=== PATIENT | female | born 1980 | race African-American/Black ===

== ENCOUNTER 2019-03-22 14:12 | Outpatient (CLI) | payer BC ==
--- NOTE | 2019-03-22 16:15 | MMO ---
Bilateral MAMMO Bilat Diag DDI+SILVIA. CLINICAL HISTORY: Patient is 38 years old and is seen for diagnostic exam,skin thickening or retraction on clinical examination and lump or thickening in the right breast. The patient has no family history of breast cancer. The patient has no personal history of cancer. VIEWS: The views performed were: bilateral craniocaudal with tomosynthesis; bilateral mediolateral oblique with tomosynthesis; and bilateral mediolateral with tomosynthesis. FILMS COMPARED: The present examination has been compared to a prior imaging study performed at [facility] on 03/22/2019. This study has been interpreted with the assistance of computer-aided detection. MAMMOGRAM FINDINGS: There are scattered fibroglandular densities. Extensive severe right sided skin thickening noted. There is a mass at the 9 o'clock position of the right breast measuring 2.9cm. This correlates with a suspicious solid mass on US. Ultrasound demonstrates additional solid masses in the axillary tail region measuring up to 4cm. Axillary adenopathy noted on the right on ultrasound as well. No definitive lesion noted on the left. In the left breast, there are no suspicious masses, calcifications or areas of architectural distortion. IMPRESSION: FINDING IN THE RIGHT BREAST IS HIGHLY SUGGESTIVE OF MALIGNANCY. BIOPSY IS RECOMMENDED. These findings are concerning for right sided inflammatory breast carcinoma with metastatic axillary adenopathy. Breast MRI advised for full assessment. THE RESULTS OF THIS EXAM WERE SENT TO THE PATIENT. ACR BI-RADS Category 5 - Highly suggestive of malignancy - appropriate action should be taken MAMMOGRAPHY NOTE: 1. A negative mammogram report should not delay a biopsy if a dominant of clinically suspicious mass is present. 2. Approximately 10% to 15% of breast cancers are not detected by mammography. 3. Adenosis and dense breasts may obscure an underlying neoplasm. Reported by: CARLA BOWLING MD Electonically Signed: [id number]
--- NOTE | 2019-03-22 16:23 | ULT ---
RIGHT BREAST ULTRASOUND: 03/22/19 HISTORY: 28-year-old female with extensive right sided breast skin thickening, edema, and warmth. Mammography demonstrates a suggestion of breast masses, particularly at the 9 o'clock position of the right breas t. FINDINGS: A focused ultrasound of the right breast is performed. There is extensive severe marked skin thickeni ng and edema. At the 9 o'clock position of the right breast, there is a hypoechoic irregular shadowin g mass measuring 2.6 x 2.2 x 3.7 cm. At 11 o'clock position, there is a hypoechoic irregularly shape d mass measuring up to 1.6 cm. There is lymphadenopathy in the right axillary region measuring 2.2 cm x 1.6 cm. There are soft tissue masses in the left axillary region which appear to represent multipl e solid hypoechoic suspicious masses within the axillary tail. This includes a mass at the 10 o'clock position 18 cm from the nipple measuring 1.2 x 0.9 cm. There is a hypoechoic solid mass also noted i n the region of the right axillary tail measuring 3.1 x 4.0 x 3.0 cm. IMPRESSION: BIRADS 5: Highly Suggestive of Malignancy - Appropriate Action Should Be Taken Requires biopsy or surgical treatment. Multiple masses are seen within the right breast and there is extensive skin thickening with right ax illary lymphadenopathy. Findings are highly concerning for inflammatory breast cancer. Ultrasound keegan ded core biopsy is advised. Breast MRI advised as well. Code T POS: OFF
== END 2019-03-22 14:13 | disposition home or self-care (01) ==
LOC: BICMAMMO 14:12
PROVIDERS: ATTEND Physician Assistant Medical
DX: N63.13 Unspecified lump in the right breast, lower outer quadrant (principal); R59.0 Localized enlarged lymph nodes; N64.89 Other specified disorders of breast
CPT/HCPCS: 77066; G0279

== ENCOUNTER 2019-03-23 10:36 | Outpatient (CLI) | payer BC ==
--- NOTE | 2019-03-23 11:31 | MMO ---
Right Breast MAMMO Unilat Diag DDI RT. CLINICAL HISTORY: Patient is 38 years old and is seen for diagnostic exam. The patient has no family history of breast cancer. The patient has no personal history of cancer. The patient has a history of right Skin punch biopsy in February,, right Ultrasound Guided Core Biopsy in February, - BREAST and right Ultrasound Guided Core Biopsy in February, - LYMPH NODES. VIEWS: The views performed were: right craniocaudal; right mediolateral oblique; and right mediolateral. FILMS COMPARED: The present examination has been compared to a prior imaging study performed at [facility] on 03/22/2019. This study has been interpreted with the assistance of computer-aided detection. MAMMOGRAM FINDINGS: There are scattered fibroglandular densities. Finding 1: There is a mass measuring 29 millimeters with associated skin thickening seen in the right breast at 9 o'clock. Finding 2: There is a mass with associated biopsy clip seen in the axillary tail of the right breast. IMPRESSION: FINDING 1: MASS IN THE RIGHT BREAST AT 9 O'CLOCK IS HIGHLY SUGGESTIVE OF MALIGNANCY. FINDING 2: MASS IN THE AXILLARY TAIL OF THE RIGHT BREAST IS HIGHLY SUGGESTIVE OF MALIGNANCY. THE RESULTS OF THIS EXAM WERE SENT TO THE PATIENT. ACR BI-RADS Category 5 - Highly suggestive of malignancy - appropriate action should be taken MAMMOGRAPHY NOTE: 1. A negative mammogram report should not delay a biopsy if a dominant of clinically suspicious mass is present. 2. Approximately 10% to 15% of breast cancers are not detected by mammography. 3. Adenosis and dense breasts may obscure an underlying neoplasm. Reported by: SHAHAB SANCHES MD Electonically Signed: [id number]
== END 2019-03-23 10:37 | disposition home or self-care (01) ==
LOC: BICMAMMO 10:36
PROVIDERS: ATTEND Specialist
DX: N63.13 Unspecified lump in the right breast, lower outer quadrant (principal); N63.31 Unspecified lump in axillary tail of the right breast

== ENCOUNTER 2019-03-26 17:19 | Outpatient (CLI) | payer BC ==
[2019-03-26 17:59] LABS: #Lymphocytes 1.5 thou/uL (1.20-3.40); #Monocytes 0.5 thou/uL (0.11-0.59); #Neutrophils 3.2 thou/uL (1.40-6.50); %Basophils 0.2 % (0.0-1.0); %Eosinophils 0.8 % (0.0-10.0); %Lymphocytes 28.7 % (21.0-51.0); %Monocytes 8.7 % (0.0-10.0); %Neutrophils 61.5 % (42.0-75.0); Mean Corpuscular HGB CONC 31.2 g/dL (32.0-36.0); Mean Corpuscular Hemoglobin 25.1 pg (27.0-31.0); Mean Corpuscular Volume 80.3 fL (78.0-98.0); Mean Platelet Volume 6.9 fL (7.4-10.4); Platelet Count 420 thou/uL (130-400); Red Blood Cell (RBC) Count 4.38 mill/uL (4.20-5.40); White Blood Cell (WBC) Count 5.3 thou/uL (4.8-10.8)
[2019-03-26 18:05] LABS: BHCG - Serum Negative (NEGATIVE); Pregs Control Background? CLEAR/WHITE (CLR/WHITE); Pregs Control Bar Appear? YES (CONTROL BAR)
[2019-03-26 18:20] LABS: Anion Gap 14 mmol/L (10-20); BUN (Urea Nitrogen) 10 mg/dL (7.0-18.7); Calc. Creatinine Clearance 0 mL/min (70-130); Calcium 9.6 mg/dL (7.8-10.44); Carbon Dioxide 22 mmol/L (22-29); Chloride 107 mmol/L (98-107); Estimated GFR-MDRD Greater than 90; Glucose 91 mg/dL (70-105); Potassium 3.6 mmol/L (3.5-5.1); Sodium 139 mmol/L (136-145)
== END 2019-03-26 17:20 | disposition home or self-care (01) ==
LOC: LABBT 17:19
PROVIDERS: ATTEND Specialist
DX: Z01.812 Encounter for preprocedural laboratory examination (principal); C50.919 Malignant neoplasm of unspecified site of unspecified female breast
CPT/HCPCS: 80048; 84703; 85025

== ENCOUNTER 2019-03-27 08:18 | Day surgery (SDC) | payer BC ==
[2019-03-26 16:18] VITALS: BMI 42.5
[2019-03-27] MEDS ORDERED: Ketorolac Tromethamine 30 MG/ML VIAL ONE (08:41)
[2019-03-27] MEDS ORDERED: PROPOFOL 60 ML ONE (12:51)
[2019-03-27] MEDS ORDERED: Lidocaine 1% (PF) 30 ML VIAL ONE (13:11)
[2019-03-27] MEDS ORDERED: Bupivacaine/Epinephrine 0.25% 30 ML VIAL ONE (13:11)
--- NOTE | 2019-03-27 15:27 | RAD ---
Exam: Chest one view HISTORY:Status post Mediport catheter placed Comparison: None FINDINGS: Cardiac silhouette:Enlarged cardiac silhouette. Aorta: Unremarkable Pulmonary vessels: Mildly prominent Costophrenic angles: Clear LUNGS: No masses or consolidation Lines and tubes: Left-sided Mediport catheter with the distal tip in the expected region of the super ior vena cava. Pneumothorax: None Osseous abnormalities: None IMPRESSION: Left-sided Mediport catheter. No pneumothorax.
[2019-03-27] MEDS ORDERED: Labetalol HCl 100 MG/20 ML VIAL ONE (15:33)
--- NOTE | 2019-03-27 16:33 | EKG ---
Test Reason : PREOP Blood Pressure : / mmHG Vent. Rate : 078 BPM Atrial Rate : 078 BPM P-R Int : 194 ms QRS Dur : 102 ms QT Int : 398 ms P-R-T Axes : 045 042 024 degrees QTc Int : 453 ms Normal sinus rhythm Normal ECG No previous ECGs available Confirmed by JOHNATHAN JAMESON ([id number]) on 03/27/2019 4:33:34 PM Referred By: DAIANA Confirmed By:JOHNATHAN JAMESON
[2019-03-27] MEDS ORDERED: hydrALAZINE 20 MG/ML VIAL ONE (16:39)
[2019-03-27] MEDS ORDERED: PROPOFOL 200 MG/20 ML VIAL ONE (19:56)
--- NOTE | 2019-03-28 14:32 | OP ---
DATE OF PROCEDURE: 03/27/2019 PREOPERATIVE DIAGNOSIS: Inflammatory right breast cancer. POSTOPERATIVE DIAGNOSIS: Inflammatory right breast cancer. OPERATION PERFORMED: Placement of a standard-size ___left subclavian power compatible MediPort. ANESTHESIA: Total intravenous anesthesia with local using 0.25% Marcaine with epinephrine. INDICATIONS: The patient is a 38-year-old black female. She presented recently with advanced obvious inflammatory cancer of the right breast. She is taken to the operating room at this time for MediPort placement. She will clearly require chemotherapy. DESCRIPTION OF PROCEDURE: Informed consent was obtained. The patient was taken to the operating room where total intravenous anesthesia was obtained with the patient in supine position. ___Left periclavicular area was prepped with ChloraPrep and draped in sterile fashion. Local anesthetic was infiltrated and a large-gauge needle was passed under the clavicle in the subclavian vein. Guidewire was passed through the needle and fluoroscopically confirmed to enter the superior vena cava. Additional local anesthetic was infiltrated and transverse incision was created based on needle insertion site. A subcutaneous pocket was dissected inferiorly. Introducer dilator was passed over the guidewire under fluoroscopic guidance. The guidewire and dilator were removed, and the catheter was passed through the introducer. The tip of the catheter was positioned at the atriocaval junction and the catheter was trimmed to the appropriate length and secured to the locking hub of the MediPort. The port was then placed in the subcutaneous pocket where it was secured to the pectoral fascia with 2 interrupted sutures of 3-0 Prolene. The incision was then closed in layers with 3-0 and 4-0 Monocryl. Additional local anesthetic was infiltrated. The port was cannulated with a Bonds needle and it aspirated blood freely and was flushed with heparinized saline. Dermabond was placed externally on the skin incision. There were no complications. Blood loss was negligible. The patient tolerated the procedure well and was taken to recovery room in stable condition. FINDINGS: A standard-size port was selected secondary to her body habitus. It was placed uneventfully into the __left_ subclavian vein using fluoroscopy. There were no complications and no blood loss. The patient tolerated the procedure well. Job ID: [id number] [facility]
== END 2019-03-27 18:16 | disposition home or self-care (01) ==
LOC: SDC 08:18
PROVIDERS: ATTEND Specialist
PROC: 02HV33Z Insertion of Infusion Device into Superior Vena Cava, Percutaneous Approach (ICD-10-PCS; principal; 2019-03-27)
DX: C50.911 Malignant neoplasm of unspecified site of right female breast (principal); I10 Essential (primary) hypertension; Z79.899 Other long term (current) drug therapy
CPT/HCPCS: 71045; 93005; 93010; J0131; J0360; J0690; J1642; J1885; J2001; J2704

== ENCOUNTER 2019-04-05 13:23 | Outpatient (CLI) | payer BC ==
--- NOTE | 2019-04-05 16:35 | PET ---
Nuclear medicine FDG PET/CT: (Positron emission tomography and computed tomography) DATE: 04/05/2019 HISTORY: 38-year-old female with malignant neoplasm of central portion of right female breast. Inflammatory breast cancer. COMPARISON: none TECHNIQUE: IV injection of F-18 fluorodeoxyglucose (FDG) dose: 11.2 mCi. PET scan and attenuation correction CT performed from skull base to proximal thighs. FINDINGS: SUV (standard uptake values) numbers given are maximum SUVs. QCLR used. Large number of very enlarged right axillary lymph nodes. The largest anterior conglomeration measuri ng approximately 4.5 x 3.5 x 4 cm with SUV of 12.8. More posteriorly located smaller conglomeration SUV 10.1. Right lateral breast lesion SUV 7.5. This could be the main tumor itself, post surgical or postbiopsy change, or both. Diffuse severe right breast skin thickening with fat stranding representing inflammatory breast cance r with SUV of 4.4. No mediastinal, hilar, pulmonary, intra-abdominal, intrapelvic, or cervical, metastatic disease. No convincing evidence of skeletal metastatic disease, but nuclear medicine bone scan would be better than patent. IMPRESSION: 1) right breast cancer. 2) inflammatory right breast cancer. 3) severe right axillary malignant metastatic lymphadenopathy. 4) no distant metastasis.
== END 2019-04-05 13:24 | disposition home or self-care (01) ==
LOC: PET 13:23
PROVIDERS: ATTEND Internal Medicine Hematology & Oncology
DX: C50.111 Malignant neoplasm of central portion of right female breast (principal); C77.3 Secondary and unspecified malignant neoplasm of axilla and upper limb lymph nodes
CPT/HCPCS: 78815; A9552

== ENCOUNTER 2019-04-06 12:17 | Outpatient (CLI) | payer BC | END 2019-04-06 12:18 | disposition home or self-care (01) | LOC: ULT 12:17 | PROVIDERS: ATTEND Internal Medicine Hematology & Oncology | DX: Z51.11 Encounter for antineoplastic chemotherapy (principal); C50.911 Malignant neoplasm of unspecified site of right female breast; I08.1 Rheumatic disorders of both mitral and tricuspid valves; Z79.899 Other long term (current) drug therapy | CPT/HCPCS: 93306 ==

== ENCOUNTER 2019-05-04 16:04 | Inpatient (IN) | payer BC ==
[2019-05-04 16:39] LABS: #Lymphocytes 1.4 thou/uL (1.20-3.40); %Basophils 0.3 % (0.0-1.0); %Eosinophils 0.3 % (0.0-10.0); %Lymphocytes 14.9 % (21.0-51.0); %Monocytes 10.2 % (0.0-10.0); %Neutrophils 74.3 % (42.0-75.0); Mean Corpuscular HGB CONC 32.3 g/dL (32.0-36.0); Mean Corpuscular Hemoglobin 26.6 pg (27.0-31.0); Mean Corpuscular Volume 82.4 fL (78.0-98.0); Mean Platelet Volume 8.2 fL (7.4-10.4); Platelet Count 230 thou/uL (130-400); RBC Distribution Width 17.5 % (11.5-14.5); Red Blood Cell (RBC) Count 4.14 mill/uL (4.20-5.40); White Blood Cell (WBC) Count 9.4 thou/uL (4.8-10.8)
--- NOTE | 2019-05-04 16:59 | RAD ---
Chest one view HISTORY: Fever. Abscess. COMPARISON: 03/27/2019. FINDINGS: Cardiac silhouette is magnified and upper limits of normal in size. Pulmonary vasculature i s unremarkable. Mediastinum is midline with a left subclavian Port-A-Cath. No lobar consolidation or evidence of pneumothorax. IMPRESSION: No active cardiopulmonary abnormalities are demonstrated.
[2019-05-04] MEDS ORDERED: Lidocaine 1% w/Epinephrine 1:100K 20 ML VIAL ONE (17:00)
[2019-05-04 17:06] LABS: ALT (SGPT) 28 U/L (8-55); AST (SGOT) 22 U/L (5-34); Albumin 3.8 g/dL (3.5-5.0); Alkaline Phosphatase 64 U/L (40-110); Anion Gap 14 mmol/L (10-20); BUN (Urea Nitrogen) 8 mg/dL (7.0-18.7); Bilirubin, Total 1.1 mg/dL (0.2-1.2); Calc. Creatinine Clearance 0 mL/min (70-130); Calcium 9.2 mg/dL (7.8-10.44); Carbon Dioxide 25 mmol/L (22-29); Chloride 102 mmol/L (98-107); Estimated GFR-MDRD Greater than 90; Globulin 3.7 g/dL (2.4-3.5); Glucose 102 mg/dL (70-105); Potassium 3.5 mmol/L (3.5-5.1); Protein, Total 7.5 g/dL (6.0-8.3); Sodium 137 mmol/L (136-145)
[2019-05-04] MEDS ORDERED: Piperacillin/Tazobactam 4.5 GM VIAL ONE (17:46)
[2019-05-04 18:59] LABS: Bacteria/HPF 3+ HPF (None Seen); Bilirubin Negative (Negative); Blood, Urine Negative (Negative); Clarity Turbid (Clear); Glucose, Urine (Dipstick) Normal (Negative); Leukocyte 500 Leu/uL (Negative); Nitrite Negative (Negative); Protein, Urine (Dipstick) 10 mg/dL (Neg-Trace); Squamous Epithelial None Seen HPF (0-3); Transitional Epithelial 0-3 HPF (None Seen); Urobilinogen Normal mg/dL (Less than 2); WBC/HPF Greater than 50 HPF (0-3)
[2019-05-04 19:09] LABS: RBC/HPF 0-3 HPF (0-3); Renal Epithelial 0-3 HPF (None Seen)
--- NOTE | 2019-05-04 19:40 | PDOC.HHP ---
Hospitalist HPI - History of Present Illness Gluteal edema, pain History of Present Illness: Patient is a 38 year old female with PMH inflammatory breast cancer (first treatment 04/16/19), anemia who presents for 1 day of swelling and pain in gluteal region, pain was severe on arrival -03/08, she was febrile in triage to 101F. In ED, UA positive for infection markers, CXR without acute findings, lactic acid 1.4, patient given one dose zosyn, cyst/abscess drained at bedside, patient to be admitted for further workup. Hospitalist ROS - Review of Systems Constitutional: denies: fever, chills Eyes: denies: pain, vision change ENT: denies: mouth pain, mouth swelling, throat pain Respiratory: denies: cough, dry Cardiovascular: denies: chest pain, palpitations, light headedness Gastrointestinal: denies: nausea, vomiting Musculoskeletal: denies: neck pain, shoulder pain Skin: reports: rash (gluteal swelling and pain), lesions Neurological: denies: weakness, numbness All other systems reviewed; all pertinent +/- noted in HPI/Subj Hospitalist History - Past Medical History Other Medical History: breast cancer anemia - Past Surgical History Other Surgical History: chemo port placement - Family History Other Family History: reviewed and noncontributory - Social History Smoking Status: Never smoker Alcohol: reports: None Drugs: reports: none - Exam General Appearance: NAD, awake alert Eye: PERRL, anicteric sclera ENT: normocephalic atraumatic, no oropharyngeal lesions, moist mucosa Neck: supple, symmetric, no JVD Heart: RRR, no murmur, no gallops, no rubs Respiratory: CTAB, no wheezes, no rales, no ronchi Gastrointestinal: soft, non-tender, non-distended, normal bowel sounds, no palpable masses, no hepatomegaly, no splenomegaly, no bruit Extremities: no cyanosis, no clubbing, no edema Skin - other findings: gluteal edema and postoperative dressing packed Neurological: cranial nerve grossly intact, normal sensation to touch, no weakness, no focal deficits Musculoskeletal: normal tone, normal strength Psychiatric: normal affect, normal behavior, A&O x 3, oriented to person Hospitalist Results - Labs Result Diagrams: 05/05/19 06:44 05/05/19 06:44 Lab results: WBC 9.4 thou/uL (4.8-10.8) 05/04/19 16:27 Hgb 11.0 g/dL (12.0-16.0) L 05/04/19 16:27 Hct 34.1 % (36.0-47.0) L 05/04/19 16:27 MCV 82.4 fL (78.0-98.0) 05/04/19 16:27 Plt Count 230 thou/uL (130-400) 05/04/19 16:27 Neutrophils % 74.3 % (42.0-75.0) 05/04/19 16:27 Sodium 137 mmol/L (136-145) 05/04/19 16:27 Potassium 3.5 mmol/L (3.5-5.1) 05/04/19 16:27 Chloride 102 mmol/L (98-107) 05/04/19 16:27 Carbon Dioxide 25 mmol/L (22-29) 05/04/19 16:27 BUN 8 mg/dL (7.0-18.7) 05/04/19 16:27 Creatinine 0.82 mg/dL (0.6-1.1) 05/04/19 16:27 Glucose 102 mg/dL (70-105) 05/04/19 16:27 Lactic Acid 1.4 mmol/L (0.5-2.2) 05/04/19 16:27 Calcium 9.2 mg/dL (7.8-10.44) 05/04/19 16:27 Total Bilirubin 1.1 mg/dL (0.2-1.2) 05/04/19 16:27 AST 22 U/L (5-34) 05/04/19 16:27 ALT 28 U/L (8-55) 05/04/19 16:27 Alkaline Phosphatase 64 U/L (40-110) 05/04/19 16:27 Serum Total Protein 7.5 g/dL (6.0-8.3) 05/04/19 16:27 Albumin 3.8 g/dL (3.5-5.0) 05/04/19 16:27 Urine Ketones Negative mg/dL (Negative) 05/04/19 17:48 Urine Blood Negative (Negative) 05/04/19 17:48 Urine Nitrite Negative (Negative) 05/04/19 17:48 Ur Leukocyte Esterase 500 Az/uL (Negative) A 05/04/19 17:48 Urine RBC 0-3 HPF (0-3) 05/04/19 17:48 Urine WBC Greater than 50 HPF (0-3) A 05/04/19 17:48 Ur Squamous Epith Cells None Seen HPF (0-3) 05/04/19 17:48 Urine Bacteria 3+ HPF (None Seen) A 05/04/19 17:48 Hospitalist H&P A/P - Plan Plan: Patient is a 38 year old female with PMH inflammatory breast cancer (first treatment 04/16/19), anemia who presents for 1 day of swelling and pain in gluteal region, found to have abscess in ED # gluteal abscess - admit to floor - general surgery, wound care nursing consults - case management consult to arrange outpatinet wound care or home health - continue abx until cultures and surgery consult, can likely go to augmentin or similar soon based on wound and urine cultures # UTI - continue broad spectrum abx, follow culture # breast cancer - recommend continued outaptinet treatment
[2019-05-04] MEDS ORDERED: Sodium Chloride 0.9% 1,000 ML IV SCH (20:24)
[2019-05-04] MEDS ORDERED: Acetaminophen 325 MG TAB PO PRN (20:24)
[2019-05-04] MEDS ORDERED: Ondansetron PF 4 MG/2 ML Vial IVP PRN ×2 (20:24→20:51)
[2019-05-04] MEDS ORDERED: Ondansetron ODT 4 MG TAB SL PRN (20:24)
[2019-05-04] MEDS ORDERED: VANCOMYCIN HCL IVPB SCH (20:45)
[2019-05-04] MEDS ORDERED: SODIUM CHLORIDE 0.9% IVPB SCH (20:45)
[2019-05-04] MEDS ORDERED: HYDROcodone/Acetaminophen 5/325 mg Tablet PO PRN (20:50)
[2019-05-04] MEDS ORDERED: Bisacodyl 5 MG TAB PO PRN (20:50)
[2019-05-04] MEDS ORDERED: Bisacodyl 10 MG SUPP PR PRN (20:50)
[2019-05-04] MEDS ORDERED: cloNIDine 0.1 MG TAB PO PRN (20:51)
[2019-05-04] MEDS ORDERED: hydrALAZINE 20 MG/ML VIAL SLOW IVP PRN (20:51)
[2019-05-04 21:35] VITALS: BMI 38.9
[2019-05-04] MEDS: Sodium Chloride 0.9% 1,000 ML IV SCH (22:21)
[2019-05-04] MEDS: Senokot S 8.6-50 MG TAB PO SCH (22:22)
[2019-05-05] MEDS: Piperacillin/Tazobactam 3.375 GM in Sodium Chloride 0.9% 100 ML IVPB SCH ×5 (00:47→23:46)
[2019-05-05] MEDS: Sodium Chloride 0.9% 1,000 ML IV SCH ×2 (06:41→23:44)
[2019-05-05 07:03] LABS: #Lymphocytes 1.6 thou/uL (1.20-3.40); #Neutrophils 5.1 thou/uL (1.40-6.50); %Basophils 0.6 % (0.0-1.0); %Eosinophils 0.1 % (0.0-10.0); %Lymphocytes 20.8 % (21.0-51.0); %Monocytes 13.3 % (0.0-10.0); %Neutrophils 65.2 % (42.0-75.0); Hemoglobin 9.1 g/dL (12.0-16.0); Mean Corpuscular HGB CONC 32.5 g/dL (32.0-36.0); Mean Corpuscular Hemoglobin 26.6 pg (27.0-31.0); Mean Corpuscular Volume 81.9 fL (78.0-98.0); Mean Platelet Volume 7.9 fL (7.4-10.4); Platelet Count 209 thou/uL (130-400); RBC Distribution Width 17.6 % (11.5-14.5); Red Blood Cell (RBC) Count 3.41 mill/uL (4.20-5.40); White Blood Cell (WBC) Count 7.8 thou/uL (4.8-10.8)
[2019-05-05 07:15] LABS: Anion Gap 10 mmol/L (10-20); BUN (Urea Nitrogen) 7 mg/dL (7.0-18.7); Calc. Creatinine Clearance 198 mL/min (70-130); Carbon Dioxide 25 mmol/L (22-29); Chloride 107 mmol/L (98-107); Estimated GFR-MDRD Greater than 90; Glucose 96 mg/dL (70-105); Sodium 139 mmol/L (136-145)
[2019-05-05 07:19] LABS: Potassium 2.6 mmol/L (3.5-5.1)
[2019-05-05] MEDS ORDERED: Potassium Chloride 20 MEQ TAB PO SCH (08:00)
[2019-05-05] MEDS: Senokot S 8.6-50 MG TAB PO SCH ×2 (08:01→19:45)
[2019-05-05] MEDS: Enoxaparin Sodium 40 MG/0.4 ML SYRINGE SC SCH (08:01)
[2019-05-05] MEDS ORDERED: Prevnar 13-Val Conj/PF 0.5 ML SYRINGE IM ONE (09:00)
[2019-05-05] MEDS: Morphine 2 MG/ML SYRINGE SLOW IVP PRN (10:28)
--- NOTE | 2019-05-05 12:48 | PDOC.GSPN ---
Surgery Progress Note: Subj - Subjective Narrative: Patient seen by Dr. Cheek for inflammatory breast cancer. This locally advanced but without evidence of metastatic disease on PET scan. She has a Mediport in place and has been on chemotherapy since mid March. She came to the hospital with a one-day history of severe pain in the gluteal area and was found to have an abscess which was drained in the emergency room and packed. Since then her pain is much better. I saw her today with the wound care team and examined the wound. This seems most likely to be a pilonidal abscess due to its location in the upper gluteal cleft area. It is about 4 cm deep and about 3 cm in size from superior to inferior but does not have any tunneling and no significant induration or erythema. It appears to be adequately drained and her mother is comfortable with packing the wound daily, as she has experience with this type of wound care in the past. Once the mother is comfortable with dressing changes, the patient can be discharged home and follow up with Dr. Cheek for the abscess. I'm going to sign off for now. Please call if there are any questions or need for further assistance. Surgery Progress Note: Obj - Vital signs Vital signs: Vital Signs - Most Recent Temp Pulse Resp BP Pulse Ox 98.3 F 80 17 134/87 98 05/05/19 11:44 05/05/19 11:44 05/05/19 11:44 05/05/19 11:44 05/05/19 11:44 Surgery Progress Note: Results - Labs Result Diagrams: 05/05/19 06:44 05/05/19 06:44 Lab results: Laboratory Results - last 24 hr 05/05/19 05/05/19 06:44 06:44 WBC 7.8 RBC 3.41 L Hgb 9.1 L Hct 27.9 L MCV 81.9 MCH 26.6 L MCHC 32.5 RDW 17.6 H Plt Count 209 MPV 7.9 Neutrophils % 65.2 Lymphocytes % 20.8 L Monocytes % 13.3 H Eosinophils % 0.1 Basophils % 0.6 Neutrophils # 5.1 Lymphocytes # 1.6 Monocytes # 1.0 H Eosinophils # 0.0 Basophils # 0.0 Sodium 139 Potassium 2.6 L* Chloride 107 Carbon Dioxide 25 Anion Gap 10 BUN 7 Creatinine 0.79 Estimated GFR (MDRD) Greater than 90 Glucose 96 Calcium 8.0
[2019-05-05] MEDS: Potassium Chloride 20 MEQ TAB PO SCH ×2 (13:20→19:45)
--- NOTE | 2019-05-05 13:46 | PDOC.HOSPP ---
- Subjective Encounter Date: 05/05/19 Encounter Time: 08:00 Subjective: pain is better, no palp or chest pain mother at bedside - Objective Vital Signs & Weight: Vital Signs (12 hours) Temp Pulse Resp BP Pulse Ox 05/05/19 11:44 98.3 F 80 17 134/87 98 05/05/19 08:00 98.2 F 87 17 104/69 98 05/05/19 04:02 98.8 F 77 18 108/64 98 Weight Weight 287 lb Result Diagrams: 05/05/19 06:44 05/05/19 06:44 Hospitalist ROS - Medication Medications: Active Medications Generic Name Dose Route Start Last Admin Trade Name Freq PRN Reason Stop Dose Admin Enoxaparin Sodium 40 mg 05/05/19 09:00 05/05/19 08:01 Lovenox SC 40 mg 0900 SOLANGE Administration Piperacillin Sod/Tazobactam 100 mls @ 200 mls/hr 05/04/19 23:59 05/05/19 11: 53 Sod 3.375 gm/ Sodium Chloride IVPB 100 mls Q6HR SOLANGE Administration Sodium Chloride 1,000 mls @ 100 mls/hr 05/04/19 21:00 05/05/19 06:41 Normal Saline 0.9% IV Not Given .Q10H SOLANGE Vancomycin HCl 2 gm/ Sodium 500 mls @ 250 mls/hr 05/04/19 22:00 05/05/19 13: 19 Chloride IVPB 500 mls Q8HR SOLANGE Administration Morphine Sulfate 2 mg 05/04/19 20:51 05/05/19 10:28 Morphine SLOW IVP 2 mg Q4H PRN Administration Breakthrough Pain Potassium Chloride 40 meq 05/05/19 15:00 05/05/19 13:20 K-Dur PO 05/06/19 09:01 40 meq Q6H SOLANGE Administration Senna/Docusate Sodium 1 tab 05/04/19 21:00 05/05/19 08:01 Senokot S PO 1 tab BID SOLANGE Administration - Exam General Appearance: NAD, awake alert Eye: PERRL, anicteric sclera ENT: no oropharyngeal lesions, moist mucosa Neck: supple, no JVD Heart: RRR, no murmur Respiratory: no wheezes, no rales Gastrointestinal: soft, non-tender, non-distended, normal bowel sounds Extremities: no cyanosis, no edema Neurological: cranial nerve grossly intact, no focal deficits Psychiatric: normal affect, A&O x 3 Hosp A/P (1) Pilonidal abscess Code(s): L05.01 - PILONIDAL CYST WITH ABSCESS Status: Acute (2) Breast cancer Status: Chronic (3) HTN (hypertension) Code(s): I10 - ESSENTIAL (PRIMARY) HYPERTENSION Status: Chronic Qualifiers: Hypertension type: essential hypertension Qualified Code(s): I10 - Essential (primary) hypertension (4) Chronic anemia Code(s): D64.9 - ANEMIA, UNSPECIFIED Status: Chronic (5) Hypokalemia Code(s): E87.6 - HYPOKALEMIA Status: Acute (6) Obesity (BMI 30-39.9) Code(s): E66.9 - OBESITY, UNSPECIFIED Status: Chronic - Plan had I&D drainage in ER, has evaluated patient on floor with no further surgical intervention needs wound care training with mother prior to discharge correct potassium continue vanc and zosyn, await culture results oral iron hemostable to ambulate as tolerated
[2019-05-05 21:30] LABS: Vancomycin, Trough 31.5 ug/mL
[2019-05-06] MEDS: Sodium Chloride 0.9% 1,000 ML IV SCH (03:32)
[2019-05-06] MEDS: Potassium Chloride 20 MEQ TAB PO SCH ×2 (03:32→08:10)
[2019-05-06 05:21] LABS: Vancomycin, Random 18.2 ug/mL (See Comment)
[2019-05-06 05:38] LABS: Anion Gap 9 mmol/L (10-20); BUN (Urea Nitrogen) 8 mg/dL (7.0-18.7); Calc. Creatinine Clearance 98 mL/min (70-130); Calcium 8.3 mg/dL (7.8-10.44); Carbon Dioxide 22 mmol/L (22-29); Chloride 113 mmol/L (98-107); Estimated GFR-MDRD 44; Glucose 102 mg/dL (70-105); Potassium 3.4 mmol/L (3.5-5.1); Sodium 141 mmol/L (136-145)
[2019-05-06] MEDS: Piperacillin/Tazobactam 3.375 GM in Sodium Chloride 0.9% 100 ML IVPB SCH (05:57)
[2019-05-06 06:04] LABS: Anisocytosis SLIGHT = 6-15 cells (100X) (0-5/hpf); Band 1 % (5-11); Hemoglobin 9.3 g/dL (12.0-16.0); Lymphocytes 16 % (21-51); MDiff Complete? YES; Mean Corpuscular HGB CONC 32.8 g/dL (32.0-36.0); Mean Corpuscular Hemoglobin 27.5 pg (27.0-31.0); Mean Corpuscular Volume 83.8 fL (78.0-98.0); Mean Platelet Volume 7.8 fL (7.4-10.4); Monocytes 14 % (0-10); Neutrophil 69 % (42-75); Ovalocytes SLIGHT = 2-5 cells (100X) (0-1/hpf); Platelet Count 253 thou/uL (130-400); Platelet Morphology Comment Appears Adequate; RBC Distribution Width 17.6 % (11.5-14.5); Red Blood Cell (RBC) Count 3.39 mill/uL (4.20-5.40); White Blood Cell (WBC) Count 6.7 thou/uL (4.8-10.8)
[2019-05-06] MEDS ORDERED: Vancomycin 1.5 GRAM/300 ML BAG 1.5 GM in Premix Bag 1 BAG IVPB SCH (08:00)
[2019-05-06] MEDS: Enoxaparin Sodium 40 MG/0.4 ML SYRINGE SC SCH (08:10)
[2019-05-06] MEDS: Senokot S 8.6-50 MG TAB PO SCH ×2 (08:10→21:08)
[2019-05-06] MEDS: Morphine 2 MG/ML SYRINGE SLOW IVP PRN (09:16)
--- NOTE | 2019-05-06 11:06 | PDOC.HOSPP ---
- Subjective Encounter Date: 05/06/19 Encounter Time: 08:45 Subjective: was nauseous a bit this am, has cleared up now no abd pain or back pain is amb in room mother at bedside - Objective Vital Signs & Weight: Vital Signs (12 hours) Temp Pulse Resp BP BP Pulse Ox 05/06/19 08:00 99.3 F 86 16 119/83 97 05/06/19 04:13 100.0 F H 91 18 130/74 97 05/05/19 23:42 98.9 F 86 18 133/84 99 Weight Admit Weight 287 lb Weight 287 lb Result Diagrams: 05/06/19 04:48 05/06/19 04:48 Hospitalist ROS - Medication Medications: Active Medications Generic Name Dose Route Start Last Admin Trade Name Freq PRN Reason Stop Dose Admin Enoxaparin Sodium 40 mg 05/05/19 09:00 05/06/19 08:10 Lovenox SC 40 mg 0900 SOLANGE Administration Piperacillin Sod/Tazobactam 100 mls @ 200 mls/hr 05/04/19 23:59 05/06/19 05: 57 Sod 3.375 gm/ Sodium Chloride IVPB 100 mls Q6HR SOLANGE Administration Sodium Chloride 1,000 mls @ 100 mls/hr 05/04/19 21:00 05/06/19 03:32 Normal Saline 0.9% IV 1,000 mls .Q10H SOLANGE Administration Morphine Sulfate 2 mg 05/04/19 20:51 05/06/19 09:16 Morphine SLOW IVP 2 mg Q4H PRN Administration Breakthrough Pain Senna/Docusate Sodium 1 tab 05/04/19 21:00 05/06/19 08:10 Senokot S PO 1 tab BID SOLANGE Administration - Exam General Appearance: awake alert Eye: PERRL, anicteric sclera ENT: no oropharyngeal lesions, moist mucosa Neck: supple, no JVD Heart: RRR, no murmur Respiratory: no wheezes, no ronchi Gastrointestinal: soft, non-tender, non-distended, normal bowel sounds Extremities: no cyanosis, no edema Neurological: cranial nerve grossly intact, no focal deficits Psychiatric: normal affect, A&O x 3 Hosp A/P (1) Pilonidal abscess Code(s): L05.01 - PILONIDAL CYST WITH ABSCESS Status: Acute (2) Breast cancer Status: Chronic (3) HTN (hypertension) Code(s): I10 - ESSENTIAL (PRIMARY) HYPERTENSION Status: Chronic Qualifiers: Hypertension type: essential hypertension Qualified Code(s): I10 - Essential (primary) hypertension (4) Chronic anemia Code(s): D64.9 - ANEMIA, UNSPECIFIED Status: Chronic (5) Hypokalemia Code(s): E87.6 - HYPOKALEMIA Status: Acute (6) Obesity (BMI 30-39.9) Code(s): E66.9 - OBESITY, UNSPECIFIED Status: Chronic - Plan had I&D drainage in ER, has evaluated patient on floor with no further surgical intervention needs wound care training with mother prior to discharge, will have a dressing change today correct potassium wound culture has not been obtained from I&D in ER switch to oral augmentin bid, dc vanc and zosyn oral iron hemostable to ambulate as tolerated
--- NOTE | 2019-05-06 17:15 | CON ---
DATE OF CONSULTATION: HISTORY OF PRESENT ILLNESS: This is a 38-year-old female, who was recently diagnosed with inflammatory carcinoma of the breast and had one cycle of chemotherapy approximately 3 weeks ago. The first cycle tomorrow. Four days prior to hospitalization, the patient started to have discomfort in the gluteal area. She was admitted today and was found to have gluteal abscess, which was drained in the emergency room and packed. She was earlier seen by Dr. Woodward, who thought that this could be related to pilonidal sinus. Currently, she is on Augmentin 875 mg p.o. q.12 hours. Earlier, she was given vancomycin and piperacillin/tazobactam. The patient's temperature has been 100.2. PHYSICAL EXAMINATION: The patient is alert and oriented. She had enlarged edematous in right breast. She has a midline in the gluteal region, which is dressed and packed. Rest of the physical exam is otherwise normal. CBC showed WBC 6700, hemoglobin 9.3, and platelet count of 253,000. Differential shows 69% neutrophils, 1 band, and 16% lymphocytes. Chemistry profile; her sodium is normal at 141, potassium was 2.6 yesterday, but it is 3.4 today. Serum creatinine is 1.6. Chest x-ray was normal. ASSESSMENT/RECOMMENDATIONS: The patient has a gluteal abscess. Her chemotherapy will be withheld for now. I will discuss the case with Dr. Rothman in the morning. Thank you very much for allowing me to participate in this patient's care. The patient will be followed by Oncology Service in the hospital and after she is discharged. Job ID: [id number]
[2019-05-06] MEDS: Amoxicillin/Potassium Clav 875 MG TAB PO SCH (21:08)
[2019-05-07 05:49] LABS: #Lymphocytes 1.5 thou/uL (1.20-3.40); #Monocytes 0.7 thou/uL (0.11-0.59); %Basophils 0.7 % (0.0-1.0); %Eosinophils 0.3 % (0.0-10.0); %Monocytes 11.5 % (0.0-10.0); %Neutrophils 63.5 % (42.0-75.0); Hemoglobin 8.9 g/dL (12.0-16.0); Mean Corpuscular HGB CONC 31.6 g/dL (32.0-36.0); Mean Corpuscular Hemoglobin 26.5 pg (27.0-31.0); Mean Corpuscular Volume 83.8 fL (78.0-98.0); Mean Platelet Volume 7.6 fL (7.4-10.4); Platelet Count 270 thou/uL (130-400); RBC Distribution Width 17.7 % (11.5-14.5); Red Blood Cell (RBC) Count 3.34 mill/uL (4.20-5.40); White Blood Cell (WBC) Count 6.3 thou/uL (4.8-10.8)
[2019-05-07 06:08] LABS: Anion Gap 12 mmol/L (10-20); BUN (Urea Nitrogen) 7 mg/dL (7.0-18.7); Calc. Creatinine Clearance 100 mL/min (70-130); Calcium 8.5 mg/dL (7.8-10.44); Carbon Dioxide 20 mmol/L (22-29); Chloride 114 mmol/L (98-107); Estimated GFR-MDRD 45; Glucose 88 mg/dL (70-105); Potassium 3.4 mmol/L (3.5-5.1); Sodium 143 mmol/L (136-145)
[2019-05-07] MEDS: Senokot S 8.6-50 MG TAB PO SCH (07:58)
[2019-05-07] MEDS: Amoxicillin/Potassium Clav 875 MG TAB PO SCH (07:58)
[2019-05-07] MEDS: Enoxaparin Sodium 40 MG/0.4 ML SYRINGE SC SCH (07:58)
[2019-05-07 08:13] VITALS: TEMP 98.5
[2019-05-07 11:03] VITALS: BP 156/99
--- NOTE | 2019-05-07 18:01 | DIS ---
DATE OF ADMISSION: 05/04/2019 DATE OF DISCHARGE: 05/07/2019 DISCHARGE DISPOSITION: To home. PRIMARY DISCHARGE DIAGNOSES: Gluteal abscess, status post incision and drainage; history of inflammatory breast cancer, on cytoreduction chemotherapy. SECONDARY DISCHARGE DIAGNOSES: Hypertension; chronic anemia; hypokalemia, on arrival, resolved; obesity. PROCEDURES DONE DURING HOSPITALIZATION: The patient had incision and drainage done for the gluteal/pilonidal abscess in the emergency room by ER physician. Chest x-ray, no acute cardiopulmonary abnormalities. Blood cultures x2, no growth. Urine culture was contaminated with mixed conner. Discharge white count of 6.3, H and H of 9 and 28, platelet count 270, MCV is 83 with 63% neutrophils. Discharge BUN of 7, creatinine 1.5, albumin 3.8. Please note, the patient's abscess was not cultured in the ER. DISCHARGE MEDICATIONS: 1. Ciprofloxacin 250 mg twice daily for 7 days. 2. Metronidazole 250 mg p.o. 3 times daily for 7 days. 3. Ultram p.r.n. for pain. 4. Toprol-XL 50 mg daily. ALLERGIES: NO KNOWN DRUG ALLERGIES. DISCHARGE PLAN: The patient to follow up with Dr. Costa Rothman on Tuesday. She needs to follow up with Dr. Amos Vazquez in 1 week, her primary care physician, Dr. Cheek, her general surgeon in 1 week, outpatient wound care on the at 8:30 a.m. BRIEF COURSE DURING HOSPITALIZATION: The patient initially came to ER on the with complaints of pain and swelling in the gluteal area. She was found to have pilonidal abscess/gluteal abscess, for which she had incision and drainage at bedside in the emergency room by ER physician. In view of the patient's history of her being on chemotherapy for inflammatory breast cancer, the patient was admitted to medical floor. She was placed on broad-spectrum antibiotics. Unfortunately, her abscess was not cultured. Her blood cultures have not grown any organism. The patient has responded well to antibiotics. Her mother was trained to do dressing changes by Wound Care during her stay here. She was also evaluated by Dr. Woodward for General Surgery. Prior to discharge, she is ambulating, and her pain is tolerable. She needs to follow up with Dr. Cheek in 1 week in his office and outpatient wound care on the at 8:30 a.m. The patient was scheduled to have her second cycle of chemotherapy from yesterday, which has been postponed due to her being on antibiotics for the abscess. She needs to have close followup with Dr. Costa Rothman. Please note, I have seen and examined the patient on the day of discharge. Job ID: [id number]
--- NOTE | 2019-05-08 02:52 | PQF ---
DEBORAH DALLAS VINAYA KUMAR MD [id number] CLINICAL DOCUMENTATION CLARIFICATION FORM: POST DISCHARGE Addendum to original discharge summary date: ____ Late entry note date: __ DATE: 05/08/19 ATTN: Elizabeth Morales Please exercise your independent, professional judgment in responding to the clarification form. Clinical indicators are provided on the bottom of this form for your review Please check appropriate box(s) to clarify if the following diagnosis has been ruled in or ruled out: Sepsis [ x] Ruled in diagnosis [ ] Continue to treat [ x ] Resolved [ ] Ruled out diagnosis [ ] Cannot rule out diagnosis [ ] Other diagnosis [ ] Unable to determine In addition, please specify: Present on Admission (POA): [ x ] Yes [ ] No [ ] Unable to determine For continuity of documentation, please document condition throughout progress notes and discharge summary. Thank You. CLINICAL INDICATORS - SIGNS / SYMPTOMS / LABS ED notes p2 05/04 SIRS scoring: Yes, pt did meet at least 2 criteria ED notes p2 05/04 Vital sign Pulse 100, Resp 20, temp 101.0 Hospitalist p1 05/05 Dr Fletcher presents for 1 day of swelling and pain in gluteal region, pain was seere on arrival -03/08, she was febrile in triage to 101F Hospitalist p1 05/05 Dr Fletcher In ED, UA positive for infection markers, CXR without CXR without acute findings, lactic acid 1.4, pt given one dose of Zosyn , cyst/abscess drained at bedside. Pt to be admitted for further workout RISK FACTORS ED notes p7 12 Sepsis secondary to Cellulitis Hospitalist p3 05/05 - Gluteal abscess Hospitalist p3 05/05 - UTI Hospitalist p4 05/05 - Breast Cancer TREATMENTS MAR 05/04 IV Zosyn MAR 05/04 IV Vancomycin ED notes I&D (This form is maintained as a part of the permanent medical record) 2014 [email or web address], [email or web address]. All Rights Reserved [email or web address] [not provided] MTDD
== END 2019-05-07 13:29 | disposition home or self-care (01) | DRG 872 ==
LOC: ERS 16:04 → T4-A 20:53
PROVIDERS: ADMIT Hospitalist; ATTEND Hospitalist
PROC: 0H98XZZ Drainage of Buttock Skin, External Approach (ICD-10-PCS; principal; 2019-05-04)
DX: A41.9 Sepsis, unspecified organism (principal); L05.01 Pilonidal cyst with abscess; E87.6 Hypokalemia; D64.9 Anemia, unspecified; C50.919 Malignant neoplasm of unspecified site of unspecified female breast; I10 Essential (primary) hypertension; E66.9 Obesity, unspecified; Z68.38 Body mass index [BMI] 38.0-38.9, adult; Z79.899 Other long term (current) drug therapy; Z28.21 Immunization not carried out because of patient refusal
CPT/HCPCS: 36415; 71045; 80048; 80053; 80202; 81003; 81015; 83605; 85025; 87040; 87086; 93005; 94760; J0360; J1650; J2270; J2405; J2543; J3370; J3490; J7050

== ENCOUNTER 2019-07-24 12:36 | Outpatient (CLI) | payer BC | END 2019-07-24 12:37 | disposition home or self-care (01) | LOC: ULT 12:36 | PROVIDERS: ATTEND Internal Medicine Hematology & Oncology | DX: Z51.11 Encounter for antineoplastic chemotherapy (principal); C50.111 Malignant neoplasm of central portion of right female breast; I08.1 Rheumatic disorders of both mitral and tricuspid valves | CPT/HCPCS: 93306 ==

== ENCOUNTER 2019-08-24 05:29 | Outpatient (CLI) | payer BC ==
[2019-08-24 11:56] LABS: #Lymphocytes 1.8 thou/uL (1.20-3.40); #Monocytes 0.6 thou/uL (0.11-0.59); #Neutrophils 2.8 thou/uL (1.40-6.50); %Basophils 0.6 % (0.0-1.0); %Eosinophils 0.2 % (0.0-10.0); %Monocytes 10.6 % (0.0-10.0); %Neutrophils 54.6 % (42.0-75.0); Hemoglobin 9.1 g/dL (12.0-16.0); Mean Corpuscular HGB CONC 33.8 g/dL (32.0-36.0); Mean Corpuscular Hemoglobin 32.5 pg (27.0-31.0); Mean Corpuscular Volume 95.9 fL (78.0-98.0); Mean Platelet Volume 6.7 fL (7.4-10.4); Platelet Count 246 thou/uL (130-400); RBC Distribution Width 15.9 % (11.5-14.5); Red Blood Cell (RBC) Count 2.79 mill/uL (4.20-5.40); White Blood Cell (WBC) Count 5.2 thou/uL (4.8-10.8)
[2019-08-24 12:09] LABS: Anion Gap 11 mmol/L (10-20); BUN (Urea Nitrogen) 15 mg/dL (7.0-18.7); Calc. Creatinine Clearance 0 mL/min (70-130); Calcium 8.4 mg/dL (7.8-10.44); Carbon Dioxide 28 mmol/L (22-29); Chloride 103 mmol/L (98-107); Estimated GFR-MDRD Greater than 90; Glucose 90 mg/dL (70-105); Sodium 139 mmol/L (136-145)
[2019-08-24 12:16] LABS: BHCG - Serum Negative (NEGATIVE); Pregs Control Background? CLEAR/WHITE (CLR/WHITE); Pregs Control Bar Appear? YES (CONTROL BAR)
== END 2019-08-24 05:30 | disposition home or self-care (01) ==
LOC: LABBT 05:29
PROVIDERS: ATTEND Specialist
DX: Z01.812 Encounter for preprocedural laboratory examination (principal); C50.912 Malignant neoplasm of unspecified site of left female breast
CPT/HCPCS: 80048; 84703; 85025

== ENCOUNTER 2019-08-30 05:57 | Observation (INO) | payer BC ==
[2019-08-30] MEDS ORDERED: Acetaminophen 500 MG TAB ONE (06:15)
[2019-08-30] MEDS ORDERED: Ketorolac Tromethamine 30 MG/ML VIAL ONE (06:15)
[2019-08-30] MEDS ORDERED: Fentanyl 100 MCG/2 ML VIAL ONE ×2 (06:30→11:22)
[2019-08-30] MEDS ORDERED: Isosulfan Blue 50 MG/5 ML VIAL ONE (06:41)
[2019-08-30] MEDS ORDERED: Lidocaine 1% w/Epinephrine 1:100K 20 ML VIAL ONE (06:41)
[2019-08-30] MEDS ORDERED: Bupivacaine 0.25% HCL 30 ML VIAL ONE (06:41)
[2019-08-30] MEDS ORDERED: Midazolam HCl 2 mg/2 ml Vial ONE (07:19)
[2019-08-30] MEDS ORDERED: Sodium Chloride 0.9% 10 ML ONE (07:43)
[2019-08-30] MEDS ORDERED: Promethazine HCl 25 MG/ML VIAL IM PRN (08:56)
[2019-08-30] MEDS ORDERED: Ondansetron HCl/PF 4 MG/2 ML Vial IVP PRN (08:56)
[2019-08-30] MEDS ORDERED: Promethazine HCl 25 MG/ML VIAL SLOW IVP PRN (08:56)
[2019-08-30] MEDS ORDERED: Promethazine HCl 25 MG/ML VIAL ONE (10:45)
[2019-08-30] MEDS ORDERED: Dextrose 50% Abboject 50 ML SYRINGE SLOW IVP PRN (10:59)
[2019-08-30] MEDS ORDERED: Ondansetron PF 4 MG/2 ML Vial IVP PRN (10:59)
[2019-08-30] MEDS ORDERED: Lorazepam 2 MG/ML VIAL SLOW IVP PRN (10:59)
[2019-08-30] MEDS ORDERED: Dextrose 5% in Water 1,000 ML IV PRN (10:59)
[2019-08-30] MEDS ORDERED: hydrALAZINE 20 MG/ML VIAL SLOW IVP PRN (10:59)
[2019-08-30] MEDS ORDERED: Morphine 2 MG/ML SYRINGE SLOW IVP PRN (10:59)
[2019-08-30] MEDS ORDERED: HYDROcodone/Acetaminophen 10/325 mg Tablet PO PRN (10:59)
[2019-08-30] MEDS ORDERED: Morphine 4 MG/ML VIAL SLOW IVP PRN (10:59)
[2019-08-30] MEDS ORDERED: Succinylcholine Chloride 20 MG/ML 10 ml SYRINGE FS ONE (11:19)
[2019-08-30] MEDS ORDERED: EPHEDRINE 25 MG/5 ML SYRINGE ONE (11:19)
[2019-08-30] MEDS ORDERED: Dexamethasone 20 MG/5 ML VIAL ONE (11:19)
[2019-08-30] MEDS ORDERED: Rocuronium Bromide 10 MG/ML (10ML VIAL) ONE (11:19)
[2019-08-30] MEDS ORDERED: Lidocaine 1% PF 5 ML VIAL ONE (11:19)
[2019-08-30] MEDS ORDERED: Ondansetron PF 4 MG/2 ML Vial ONE (11:19)
[2019-08-30] MEDS ORDERED: PROPOFOL 200 MG/20 ML VIAL ONE (11:19)
[2019-08-30 12:28] VITALS: BMI 38.0
[2019-08-30] MEDS: D5 1/2 NS w/20 mEq KCL 1,000 ML IV SCH ×2 (15:50→20:38)
[2019-08-30] MEDS: Famotidine 20 MG TAB PO SCH (20:38)
[2019-08-31 04:57] LABS: #Lymphocytes 2.1 thou/uL (1.20-3.40); #Monocytes 0.9 thou/uL (0.11-0.59); #Neutrophils 4.1 thou/uL (1.40-6.50); %Basophils 0.1 % (0.0-1.0); %Eosinophils 0.2 % (0.0-10.0); %Lymphocytes 29.1 % (21.0-51.0); %Monocytes 12.2 % (0.0-10.0); %Neutrophils 58.4 % (42.0-75.0); Mean Corpuscular HGB CONC 33.3 g/dL (32.0-36.0); Mean Corpuscular Hemoglobin 32.4 pg (27.0-31.0); Mean Corpuscular Volume 97.5 fL (78.0-98.0); Mean Platelet Volume 6.2 fL (7.4-10.4); Platelet Count 257 thou/uL (130-400); RBC Distribution Width 16.2 % (11.5-14.5); Red Blood Cell (RBC) Count 2.46 mill/uL (4.20-5.40); White Blood Cell (WBC) Count 7.1 thou/uL (4.8-10.8)
[2019-08-31] MEDS: D5 1/2 NS w/20 mEq KCL 1,000 ML IV SCH (05:39)
[2019-08-31] MEDS: Famotidine 20 MG TAB PO SCH (08:03)
[2019-08-31 10:45] VITALS: BP 141/83; TEMP 98
--- NOTE | 2019-08-31 17:44 | DIS ---
DATE OF ADMISSION: 08/30/2019 DATE OF DISCHARGE: 08/31/2019 ADMISSION DIAGNOSIS: Right breast inflammatory breast cancer. DISCHARGE DIAGNOSIS: Right breast inflammatory breast cancer. PROCEDURES PERFORMED: Right modified radical mastectomy and left simple mastectomy. ADMISSION HISTORY: The patient is a 39-year-old black female, who presented with an advanced inflammatory cancer of the right breast several months ago. She has undergone neoadjuvant chemotherapy. She has had excellent results and presents this time for right modified radical mastectomy. She has requested left prophylactic mastectomy simultaneously. HOSPITAL COURSE: She underwent uneventful surgery on the day of her admission. She had two drains placed on the right and one on the left. She has a circumferential Chacorta wrap in place. She has no complaints. She notes minimal discomfort. She has ambulated and gone to the bathroom and her pain is well controlled. She has been instructed in drain care. She is stable for discharge home at this time. She is discharged home with instructions to follow up with myself in 5 days. She is asked not to shower between now and then. She is given a discharge prescription for [employer]. Job ID: [id number]
--- NOTE | 2019-09-01 14:05 | OP ---
DATE OF PROCEDURE: 08/30/2019 PREOPERATIVE DIAGNOSIS: Right breast inflammatory breast cancer. POSTOPERATIVE DIAGNOSIS: Right breast inflammatory breast cancer. OPERATION PERFORMED: Right modified radical mastectomy, left simple mastectomy. ANESTHESIA: General endotracheal. INDICATIONS: The patient is a 39-year-old black female. She had presented several months previously with advanced and obvious inflammatory cancer of the right breast. She had multiple enlarged metastatic lymph nodes as well. A MediPort was placed, and she underwent neoadjuvant chemotherapy with excellent results. She presents at this time for her surgical treatment, having completed chemotherapy. DESCRIPTION OF OPERATION: Informed consent was obtained. The patient was taken to the operating room, where general endotracheal anesthesia was obtained with the patient in the supine position. Bilateral breasts and axilla were prepped with ChloraPrep and draped in sterile fashion. Attention was turned to the left breast first. An elliptical incision was created across the left breast. Flaps were raised superiorly and inferiorly down to the chest wall. The breast was then dissected off the chest wall. All dissection was carried out using the plasma blade. At the lateral aspect of the dissection, the breast was dissected off the lateral aspect of the pectoralis. The specimen was tagged for orientation and submitted to Pathology. The skin flaps were then tailored carefully to minimize cutaneous redundancy. On the medial aspect, there was a superiorly oriented dog-ear correction. The wound was then copiously irrigated with saline. Hemostasis was meticulous. A 19-Bulgarian fluted drain was then brought out laterally and inferiorly, where it was secured to the skin with 3-0 nylon. The skin edges were then approximated using a subcutaneous running suture of 3-0 Vicryl, followed by skin shagufta. Attention was turned to the right breast. The right breast still had some evidence of peau d'orange change. This was, however, dramatically improved from her presenting condition. An elliptical incision was created across the breast and over into the inferior aspect of the axilla. Flaps were again raised superiorly, inferiorly, and medially down to the chest wall and the breast was dissected off the chest wall using the plasma blade. At the lateral aspect of the pectoralis, careful dissection was carried superiorly up into the axilla. There was extensive scarring and fibrous tissue within the axilla, likely from the resolution of the metastatic disease. This fibrous tissue made it challenging to appropriately dissect and identify the axillary structures. I was able to identify the axillary vein and the fatty and lymphatic tissue was swept inferiorly out of the axilla. Care was taken to avoid potential injury to the long thoracic or thoracodorsal nerves. There was no dominant palpable lymphadenopathy noted within the axilla. Investing lymphatic tissues were divided using the hemoclips. The axillary tissue was swept inferiorly in continuity with the axillary tail of the breast. The tissue was removed intact and tagged for orientation and submitted to Pathology. The wound was copiously irrigated with sterile water. The skin edges were again carefully tailored to avoid redundancy. The wound was again closed in layers using 3-0 Vicryl to approximate the subcutaneous tissue and shagufta to approximate the skin edges. Prior to closing, I placed two #19 fluted drains, one into the axilla and one across the chest wall and each were secured to the skin edge with 3-0 nylon. Not mentioned earlier that on the left side, the MediPort was encountered. At one point, it was dissected up off the chest wall. It was secured back down to the chest wall with a single interrupted suture of 3-0 Prolene. Dressings were applied using Tegaderm dressings to the drain exit sites and Xeroform gauze, followed by fluffed gauze across the chest wall. A Chacorta wrap was then placed circumferentially around the chest wall and secured with tape. There were no complications. Blood loss was negligible. The patient tolerated the procedure well and was taken to recovery room in stable condition. Job ID: [id number]
== END 2019-08-31 12:57 | disposition home or self-care (01) ==
LOC: SDC 05:57 → SURG A 11:00
PROVIDERS: ADMIT Specialist; ATTEND Specialist
PROC: 0HTT0ZZ Resection of Right Breast, Open Approach (ICD-10-PCS; principal; 2019-08-30)
PROC: 0HTU0ZZ Resection of Left Breast, Open Approach (ICD-10-PCS; 2019-08-30)
DX: C50.811 Malignant neoplasm of overlapping sites of right female breast (principal); N60.12 Diffuse cystic mastopathy of left breast; I10 Essential (primary) hypertension; Z17.1 Estrogen receptor negative status [ER-]; Z98.890 Other specified postprocedural states; Z79.899 Other long term (current) drug therapy
CPT/HCPCS: 36415; 85025; 88307; 88309; G0378; J0690; J1100; J1885; J2001; J2250; J2405; J2550; J2704; J3010; J3480; Q9968; S0020

== ENCOUNTER 2019-12-11 13:43 | Outpatient (CLI) | payer BC | END 2019-12-11 13:44 | disposition home or self-care (01) | LOC: ULT 13:43 | PROVIDERS: ATTEND Internal Medicine Hematology & Oncology | DX: Z51.11 Encounter for antineoplastic chemotherapy (principal); C50.111 Malignant neoplasm of central portion of right female breast; I07.1 Rheumatic tricuspid insufficiency; Z79.899 Other long term (current) drug therapy | CPT/HCPCS: 93306 ==

== ENCOUNTER 2020-04-15 13:49 | Outpatient (CLI) | payer BC | END 2020-04-15 13:50 | disposition home or self-care (01) | LOC: ULT 13:49 | PROVIDERS: ATTEND Internal Medicine Hematology & Oncology | DX: Z51.11 Encounter for antineoplastic chemotherapy (principal); C50.111 Malignant neoplasm of central portion of right female breast; I07.1 Rheumatic tricuspid insufficiency; Z79.899 Other long term (current) drug therapy | CPT/HCPCS: 93306 ==

== ENCOUNTER → 2021-02-11 | Day surgery (SDC) | payer BC | LOC: SPEC 14:10 | PROVIDERS: ATTEND Internal Medicine Hematology & Oncology | DX: T82.534A Leakage of infusion catheter, initial encounter (principal); C50.111 Malignant neoplasm of central portion of right female breast; D50.0 Iron deficiency anemia secondary to blood loss (chronic) | CPT/HCPCS: 36415; 36598; 80053; J1642 ==

== ENCOUNTER 2021-03-16 20:30 | Emergency (ER) | payer BC ==
[2021-03-16 22:04] LABS: #Eosinphils 0.1 thou/uL (0.0-0.7); #Monocytes 0.4 thou/uL (0.11-0.59); #Neutrophils 4.2 thou/uL (1.40-6.50); %Basophils 0.3 % (0.0-1.0); %Eosinophils 0.8 % (0.0-10.0); %Lymphocytes 29.9 % (21.0-51.0); %Monocytes 6.4 % (0.0-10.0); %Neutrophils 62.6 % (42.0-75.0); Hemoglobin 12.6 g/dL (12.0-16.0); Mean Corpuscular HGB CONC 32.8 g/dL (32.0-36.0); Mean Corpuscular Hemoglobin 29.4 pg (27.0-31.0); Mean Corpuscular Volume 89.6 fL (78.0-98.0); Mean Platelet Volume 6.3 fL (7.4-10.4); Platelet Count 339 thou/uL (130-400); RBC Distribution Width 12.7 % (11.5-14.5); White Blood Cell (WBC) Count 6.7 thou/uL (4.8-10.8)
[2021-03-16 22:23] LABS: ALT (SGPT) 20 U/L (8-55); AST (SGOT) 16 U/L (5-34); Albumin 3.9 g/dL (3.5-5.0); Alkaline Phosphatase 79 U/L (40-110); Anion Gap 14 mmol/L (10-20); BUN (Urea Nitrogen) 10 mg/dL (7.0-18.7); Bilirubin, Total 0.4 mg/dL (0.2-1.2); Calc. Creatinine Clearance 0 mL/min (70-130); Calcium 9.8 mg/dL (7.8-10.44); Carbon Dioxide 25 mmol/L (22-29); Chloride 106 mmol/L (98-107); Globulin 3.5 g/dL (2.4-3.5); Glucose 112 mg/dL (70-105); Lipase 45 U/L (8-78); Potassium 4.1 mmol/L (3.5-5.1); Protein, Total 7.4 g/dL (6.0-8.3); Sodium 141 mmol/L (136-145)
[2021-03-16 23:09] LABS: Bilirubin Negative (Negative); Blood, Urine Negative (Negative); Clarity Turbid (Clear); Glucose, Urine (Dipstick) Normal (Negative); Ketone, Urine Negative (Negative); Leukocyte 500 Leu/uL (Negative); Nitrite Negative (Negative); Protein, Urine (Dipstick) 20 mg/dL (Neg-Trace); RBC/HPF 0-3 HPF (0-3); Specific Gravity, Urine 1.026 (1.002-1.036); Urobilinogen Normal mg/dL (Less than 2); WBC/HPF 21-50 HPF (0-3)
[2021-03-16 23:13] LABS: Pregnancy Test - Urine (BHCG) Negative (Negative); Pregu Control Background? CLEAR/WHITE (CLR/WHITE); Pregu Control Bar Appear? YES (CONTROL BAR)
[2021-03-16 23:14] LABS: Specific Gravity 1.026 (1.002-1.036)
[2021-03-16 23:16] LABS: Bacteria/HPF 1+ HPF (None Seen)
== END 2021-03-16 23:34 | disposition home or self-care (01) ==
LOC: ERS 20:30
DX: R11.2 Nausea with vomiting, unspecified (principal); I10 Essential (primary) hypertension; D64.9 Anemia, unspecified; Z79.899 Other long term (current) drug therapy
CPT/HCPCS: 36415; 80053; 81003; 81015; 81025; 83690; 85025; 99284

== ENCOUNTER 2021-04-27 12:59 | Emergency (ER) | payer BC ==
[2021-04-27 13:55] LABS: #Eosinphils 0.1 thou/uL (0.0-0.7); #Monocytes 0.7 thou/uL (0.11-0.59); #Neutrophils 5.6 thou/uL (1.40-6.50); %Basophils 0.2 % (0.0-1.0); %Eosinophils 0.6 % (0.0-10.0); %Lymphocytes 23.7 % (21.0-51.0); %Monocytes 8.4 % (0.0-10.0); Hemoglobin 13.4 g/dL (12.0-16.0); Mean Corpuscular HGB CONC 32.4 g/dL (32.0-36.0); Mean Corpuscular Volume 92.7 fL (78.0-98.0); Mean Platelet Volume 6.1 fL (7.4-10.4); Platelet Count 313 thou/uL (130-400); RBC Distribution Width 12.8 % (11.5-14.5); Red Blood Cell (RBC) Count 4.46 mill/uL (4.20-5.40); White Blood Cell (WBC) Count 8.4 thou/uL (4.8-10.8)
[2021-04-27 14:19] LABS: ALT (SGPT) 17 U/L (8-55); AST (SGOT) 14 U/L (5-34); Albumin 3.9 g/dL (3.5-5.0); Alkaline Phosphatase 83 U/L (40-110); Anion Gap 11 mmol/L (10-20); BUN (Urea Nitrogen) 11 mg/dL (7.0-18.7); Bilirubin, Total 0.7 mg/dL (0.2-1.2); Calc. Creatinine Clearance 0 mL/min (70-130); Calcium 10.4 mg/dL (7.8-10.44); Carbon Dioxide 26 mmol/L (22-29); Chloride 104 mmol/L (98-107); Globulin 4.3 g/dL (2.4-3.5); Glucose 112 mg/dL (70-105); Potassium 3.9 mmol/L (3.5-5.1); Protein, Total 8.2 g/dL (6.0-8.3); Sodium 137 mmol/L (136-145)
== END 2021-04-27 17:30 | disposition home or self-care (01) ==
LOC: ERS 12:59
DX: R42 Dizziness and giddiness (principal); I10 Essential (primary) hypertension; Z79.899 Other long term (current) drug therapy
CPT/HCPCS: 36415; 80053; 85025; 93005

== ENCOUNTER 2021-05-07 11:12 | Outpatient (CLI) | payer BC | END 2021-05-07 11:13 | disposition home or self-care (01) | LOC: MRI 11:12 | PROVIDERS: ATTEND Family Medicine | DX: M54.16 Radiculopathy, lumbar region (principal); M47.816 Spondylosis without myelopathy or radiculopathy, lumbar region | CPT/HCPCS: 72148 ==

== ENCOUNTER 2021-05-08 12:11 | Inpatient (IN) | payer BC ==
[~2021-05-08 12:11] MED LIST: Iopamidol-370 76% 500 ML 1 ML ONE
[2021-05-08 13:17] LABS: Hemoglobin 14.4 g/dL (12.0-16.0); Mean Corpuscular HGB CONC 32.4 g/dL (32.0-36.0); Mean Corpuscular Hemoglobin 29.6 pg (27.0-31.0); Mean Corpuscular Volume 91.5 fL (78.0-98.0); Mean Platelet Volume 6.1 fL (7.4-10.4); Platelet Count 221 thou/uL (130-400); RBC Distribution Width 12.4 % (11.5-14.5); Red Blood Cell (RBC) Count 4.85 mill/uL (4.20-5.40); White Blood Cell (WBC) Count 6.4 thou/uL (4.8-10.8)
[2021-05-08 13:24] LABS: BHCG - Serum Negative (NEGATIVE); Pregs Control Background? CLEAR/WHITE (CLR/WHITE); Pregs Control Bar Appear? YES (CONTROL BAR)
[2021-05-08 13:50] LABS: Eosinophils 2 % (0-10); Lymphocytes 15 % (21-51); MDiff Complete? YES; Monocytes 5 % (0-10); Neutrophil 76 % (42-75); Platelet Morphology Comment Appears Adequate; RBC Morphology Normal
[2021-05-08 13:59] LABS: AST (SGOT) 18 U/L (5-34); Anion Gap 14 mmol/L (10-20); Bilirubin, Total 0.4 mg/dL (0.2-1.2); Calcium 10.1 mg/dL (7.8-10.44); Carbon Dioxide 20 mmol/L (22-29); Chloride 104 mmol/L (98-107); Potassium 3.4 mmol/L (3.5-5.1); Protein, Total 8.5 g/dL (6.0-8.3); Sodium 135 mmol/L (136-145)
[2021-05-08 14:00] LABS: Globulin 4.5 g/dL (2.4-3.5)
[2021-05-08 14:02] LABS: Glucose 86 mg/dL (70-105)
[2021-05-08 14:05] LABS: Alkaline Phosphatase 85 U/L (40-110)
[2021-05-08 14:06] LABS: Calc. Creatinine Clearance 0 mL/min (70-130)
[2021-05-08 14:07] LABS: BUN (Urea Nitrogen) 9 mg/dL (7.0-18.7)
[2021-05-08 14:08] LABS: ALT (SGPT) 20 U/L (8-55); Magnesium 1.8 mg/dL (1.6-2.6)
[2021-05-08 14:09] LABS: Lipase 74 U/L (8-78)
[2021-05-08] MEDS ORDERED: Acetaminophen 325 MG TAB PO PRN (15:55)
[2021-05-08] MEDS ORDERED: Guaifenesin DM 100-10/5 ML UDCUP PO PRN (15:55)
[2021-05-08] MEDS ORDERED: Bisacodyl 10 MG SUPP PR PRN (15:55)
[2021-05-08] MEDS ORDERED: methylPREDNISolone 4 mg Tablet PO SCH (16:00)
[2021-05-08] MEDS ORDERED: Ondansetron PF 4 MG/2 ML Vial ONE (17:08)
[2021-05-08] MEDS ORDERED: Dexamethasone 10 MG/ML VIAL ONE (17:08)
[2021-05-08] MEDS: Dexamethasone 4 MG TAB PO SCH (19:36)
[2021-05-08] MEDS: hydrALAZINE 20 MG/ML VIAL SLOW IVP PRN (19:45)
[2021-05-08] MEDS: Metoprolol Tartrate 25 MG TAB PO SCH (20:44)
[2021-05-08] MEDS: levETIRAcetam in NS 500 MG in Premix Bag 1 BAG IVPB SCH (20:44)
[2021-05-09] MEDS: Dexamethasone 4 MG TAB PO SCH ×4 (02:00→20:43)
[2021-05-09 04:45] LABS: #Lymphocytes 0.7 thou/uL (1.20-3.40); #Monocytes 0.1 thou/uL (0.11-0.59); %Eosinophils 0.3 % (0.0-10.0); %Lymphocytes 10.5 % (21.0-51.0); %Monocytes 1.9 % (0.0-10.0); %Neutrophils 87.4 % (42.0-75.0); Mean Corpuscular HGB CONC 33.5 g/dL (32.0-36.0); Mean Corpuscular Hemoglobin 30.5 pg (27.0-31.0); Mean Corpuscular Volume 91.1 fL (78.0-98.0); Mean Platelet Volume 6.2 fL (7.4-10.4); Platelet Count 274 thou/uL (130-400); RBC Distribution Width 12.5 % (11.5-14.5); Red Blood Cell (RBC) Count 4.27 mill/uL (4.20-5.40); White Blood Cell (WBC) Count 6.9 thou/uL (4.8-10.8)
[2021-05-09 05:08] LABS: ALT (SGPT) 18 U/L (8-55); AST (SGOT) 13 U/L (5-34); Albumin 3.7 g/dL (3.5-5.0); Alkaline Phosphatase 78 U/L (40-110); Anion Gap 14 mmol/L (10-20); BUN (Urea Nitrogen) 10 mg/dL (7.0-18.7); Bilirubin, Total 0.4 mg/dL (0.2-1.2); Calc. Creatinine Clearance 200 mL/min (70-130); Calcium 10.4 mg/dL (7.8-10.44); Carbon Dioxide 22 mmol/L (22-29); Chloride 100 mmol/L (98-107); Glucose 126 mg/dL (70-105); Potassium 3.9 mmol/L (3.5-5.1); Protein, Total 7.7 g/dL (6.0-8.3); Sodium 132 mmol/L (136-145)
[2021-05-09] MEDS: Losartan 25 MG TAB PO SCH (08:35)
[2021-05-09] MEDS: Metoprolol Tartrate 25 MG TAB PO SCH ×2 (08:36→20:43)
[2021-05-09] MEDS ORDERED: Prevnar 13-Val Conj/PF 0.5 ML SYRINGE IM ONE (09:00)
[2021-05-09] MEDS ORDERED: Magnevist 469MG/ML 20 ML VIAL ONE ×4 (10:33)
[2021-05-09] MEDS: levETIRAcetam in NS 500 MG in Premix Bag 1 BAG IVPB SCH ×2 (10:48→20:59)
[2021-05-10] MEDS: Dexamethasone 4 MG TAB PO SCH ×4 (01:32→18:45)
[2021-05-10] MEDS: Metoprolol Tartrate 25 MG TAB PO SCH ×2 (07:59→21:02)
[2021-05-10] MEDS: Losartan 25 MG TAB PO SCH (07:59)
[2021-05-10] MEDS: levETIRAcetam in NS 500 MG in Premix Bag 1 BAG IVPB SCH (08:37)
[2021-05-10] MEDS: Senokot S 8.6-50 MG TAB PO PRN (08:37)
[2021-05-10] MEDS ORDERED: Lorazepam 2 MG/ML VIAL SLOW IVP SCH (11:15)
[2021-05-10] MEDS: levETIRAcetam 500 MG TAB PO SCH (21:01)
[2021-05-11] MEDS: Dexamethasone 4 MG TAB PO SCH ×3 (01:49→13:57)
[2021-05-11] MEDS: Losartan 25 MG TAB PO SCH (07:54)
[2021-05-11] MEDS: Metoprolol Tartrate 25 MG TAB PO SCH ×2 (07:54→22:06)
[2021-05-11] MEDS: levETIRAcetam 500 MG TAB PO SCH ×2 (07:54→22:06)
[2021-05-11 08:33] LABS: #Lymphocytes 0.8 thou/uL (1.20-3.40); #Monocytes 0.4 thou/uL (0.11-0.59); #Neutrophils 8.2 thou/uL (1.40-6.50); %Basophils 0.1 % (0.0-1.0); %Eosinophils 0.2 % (0.0-10.0); %Lymphocytes 8.7 % (21.0-51.0); Hemoglobin 13.5 g/dL (12.0-16.0); Mean Corpuscular HGB CONC 32.7 g/dL (32.0-36.0); Mean Corpuscular Hemoglobin 30.2 pg (27.0-31.0); Mean Corpuscular Volume 92.4 fL (78.0-98.0); Mean Platelet Volume 6.2 fL (7.4-10.4); Platelet Count 289 thou/uL (130-400); RBC Distribution Width 12.5 % (11.5-14.5); Red Blood Cell (RBC) Count 4.48 mill/uL (4.20-5.40); White Blood Cell (WBC) Count 9.4 thou/uL (4.8-10.8)
[2021-05-11 08:55] LABS: ALT (SGPT) 26 U/L (8-55); AST (SGOT) 15 U/L (5-34); Albumin 3.8 g/dL (3.5-5.0); Alkaline Phosphatase 77 U/L (40-110); Anion Gap 10 mmol/L (10-20); BUN (Urea Nitrogen) 15 mg/dL (7.0-18.7); Bilirubin, Total 0.5 mg/dL (0.2-1.2); Calc. Creatinine Clearance 182 mL/min (70-130); Calcium 10.2 mg/dL (7.8-10.44); Carbon Dioxide 28 mmol/L (22-29); Chloride 102 mmol/L (98-107); Glucose 127 mg/dL (70-105); Potassium 4.5 mmol/L (3.5-5.1); Protein, Total 7.8 g/dL (6.0-8.3); Sodium 135 mmol/L (136-145)
[2021-05-11 10:02] LABS: SARS-CoV-2 NAA Rapid Test DETECTED (NotDetected)
[2021-05-11] MEDS: hydrALAZINE 20 MG/ML VIAL SLOW IVP PRN (10:24)
[2021-05-11] MEDS: Lorazepam 2 MG/ML VIAL SLOW IVP PRN (10:25)
[2021-05-11 12:29] LABS: SARS-CoV-2 NAA Rapid Test Not Detected (NotDetected)
[2021-05-11] MEDS ORDERED: Bacitracin Zinc Ointment 30 gm TUBE ONE (13:10)
[2021-05-11] MEDS ORDERED: Neomycin-Polymyxin 1 ML AMP ONE ×2 (13:10→16:46)
[2021-05-11] MEDS ORDERED: Thrombin 5000 UNITS/5 ML VIAL ONE (13:10)
[2021-05-11] MEDS ORDERED: Lidocaine 0.5%/Epinephrine 1:200,000 50 ml Vial ONE (13:10)
[2021-05-11] MEDS ORDERED: Fentanyl 250 MCG/5 ML VIAL ONE (14:34)
[2021-05-11] MEDS ORDERED: Lidocaine 2% Jelly 5 ML TUBE ONE ×2 (14:34→15:11)
[2021-05-11] MEDS ORDERED: levETIRAcetam 500 MG/100 ML PREMIX BAG ONE (14:59)
[2021-05-11] MEDS ORDERED: Phenylephrine 10 MG/ML VIAL ONE (15:06)
[2021-05-11] MEDS ORDERED: PROPOFOL 200 MG/20 ML VIAL ONE (15:06)
[2021-05-11] MEDS ORDERED: Dexamethasone 20 MG/5 ML VIAL ONE (15:06)
[2021-05-11] MEDS ORDERED: Lidocaine 1% PF 5 ML VIAL ONE (15:06)
[2021-05-11] MEDS ORDERED: Labetalol HCl 100 MG/20 ML VIAL ONE (15:06)
[2021-05-11] MEDS ORDERED: Rocuronium Bromide 10 MG/ML (10ML VIAL) ONE (15:06)
[2021-05-11] MEDS ORDERED: Vecuronium 10 MG VIAL ONE (15:06)
[2021-05-11] MEDS ORDERED: Mannitol 12.5 GM/50 ML ONE ×2 (16:27→16:46)
[2021-05-11] MEDS ORDERED: Dexamethasone 4 MG TAB PO SCH (18:00)
[2021-05-11] MEDS ORDERED: SUGAMMADEX SODIUM 200 MG/2 ML VIAL ONE (19:27)
[2021-05-11] MEDS ORDERED: Labetalol HCl 100 MG/20 ML VIAL SLOW IVP PRN (20:30)
[2021-05-11] MEDS ORDERED: Promethazine HCl 25 MG/ML VIAL IM PRN (20:44)
[2021-05-11] MEDS ORDERED: Ondansetron HCl/PF 4 MG/2 ML Vial IVP PRN (20:44)
[2021-05-11] MEDS ORDERED: Promethazine HCl 25 MG/ML VIAL IVPB PRN (20:44)
[2021-05-11] MEDS: niCARdipine 25 MG in Sodium Chloride 0.9% 250 ML 250 ML IVPB SCH (20:52)
[2021-05-11] MEDS ORDERED: Fentanyl 100 MCG/2 ML VIAL ONE (21:11)
[2021-05-11] MEDS ORDERED: Morphine 4 MG/ML VIAL ONE (22:09)
[2021-05-11] MEDS: Morphine 4 MG/ML VIAL SLOW IVP PRN ×2 (22:12→23:41)
[2021-05-11] MEDS: Sodium Chloride 0.9% 1,000 ML IV SCH (22:15)
[2021-05-11] MEDS: levETIRAcetam in NS 500 MG in Premix Bag 1 BAG IVPB SCH (22:15)
[2021-05-11] MEDS: Dexamethasone 4 mg/ml Vial SLOW IVP SCH (22:40)
[2021-05-12] MEDS: Morphine 4 MG/ML VIAL SLOW IVP PRN ×2 (02:04→04:35)
[2021-05-12] MEDS: niCARdipine 50 MG, Admixture Fee 1 EACH in Sodium Chloride 0.9% 250 ML 230 ML IVPB SCH ×2 (02:05→15:33)
[2021-05-12] MEDS: Dexamethasone 4 mg/ml Vial SLOW IVP SCH ×4 (04:35→21:18)
[2021-05-12] MEDS: ceFAZolin Sodium/D5W 2 GM in Premix Bag 1 BAG IVPB SCH ×3 (05:52→21:14)
[2021-05-12 08:38] LABS: #Basophils 0.2 thou/uL (0.0-0.2); #Lymphocytes 0.4 thou/uL (1.20-3.40); #Monocytes 0.6 thou/uL (0.11-0.59); #Neutrophils 10.9 thou/uL (1.40-6.50); %Basophils 1.4 % (0.0-1.0); %Eosinophils 0.1 % (0.0-10.0); %Lymphocytes 3.6 % (21.0-51.0); %Monocytes 5.1 % (0.0-10.0); %Neutrophils 89.8 % (42.0-75.0); Hemoglobin 12.2 g/dL (12.0-16.0); Mean Corpuscular HGB CONC 32.5 g/dL (32.0-36.0); Mean Corpuscular Hemoglobin 30.2 pg (27.0-31.0); Mean Corpuscular Volume 92.9 fL (78.0-98.0); Mean Platelet Volume 6.2 fL (7.4-10.4); Platelet Count 249 thou/uL (130-400); RBC Distribution Width 12.6 % (11.5-14.5); Red Blood Cell (RBC) Count 4.05 mill/uL (4.20-5.40); White Blood Cell (WBC) Count 12.1 thou/uL (4.8-10.8)
[2021-05-12] MEDS: Metoprolol Tartrate 25 MG TAB PO SCH ×2 (08:41→21:14)
[2021-05-12] MEDS: Losartan 25 MG TAB PO SCH (08:41)
[2021-05-12 08:54] LABS: Anion Gap 13 mmol/L (10-20); BUN (Urea Nitrogen) 14 mg/dL (7.0-18.7); Calc. Creatinine Clearance 188 mL/min (70-130); Calcium 9.1 mg/dL (7.8-10.44); Carbon Dioxide 23 mmol/L (22-29); Chloride 105 mmol/L (98-107); Glucose 180 mg/dL (70-105); Potassium 3.8 mmol/L (3.5-5.1); Sodium 137 mmol/L (136-145)
[2021-05-12] MEDS: levETIRAcetam in NS 500 MG in Premix Bag 1 BAG IVPB SCH ×2 (09:26→21:11)
[2021-05-12] MEDS: Sodium Chloride 0.9% 1,000 ML IV SCH (13:03)
[2021-05-12] MEDS: Ondansetron PF 4 MG/2 ML Vial IVP PRN (14:46)
[2021-05-12] MEDS ORDERED: Dextrose 5% in Water 1,000 ML IV PRN (15:43)
[2021-05-12] MEDS ORDERED: Dextrose 50% Abboject 50 ML SYRINGE SLOW IVP PRN (15:43)
[2021-05-12] MEDS: hydrALAZINE 20 MG/ML VIAL SLOW IVP PRN (22:48)
[2021-05-13] MEDS: Sodium Chloride 0.9% 1,000 ML IV SCH ×2 (02:34→14:48)
[2021-05-13] MEDS: Dexamethasone 4 mg/ml Vial SLOW IVP SCH ×4 (05:28→21:06)
[2021-05-13] MEDS: niCARdipine 50 MG, Admixture Fee 1 EACH in Sodium Chloride 0.9% 250 ML 230 ML IVPB SCH ×2 (06:12→18:44)
[2021-05-13 09:17] LABS: #Lymphocytes 0.6 thou/uL (1.20-3.40); #Monocytes 0.7 thou/uL (0.11-0.59); #Neutrophils 9.8 thou/uL (1.40-6.50); %Basophils 0.2 % (0.0-1.0); %Eosinophils 0.1 % (0.0-10.0); %Lymphocytes 5.2 % (21.0-51.0); %Neutrophils 88.5 % (42.0-75.0); Hemoglobin 11.9 g/dL (12.0-16.0); Mean Corpuscular HGB CONC 31.1 g/dL (32.0-36.0); Mean Corpuscular Hemoglobin 28.9 pg (27.0-31.0); Mean Corpuscular Volume 92.8 fL (78.0-98.0); Mean Platelet Volume 6.3 fL (7.4-10.4); Platelet Count 233 thou/uL (130-400); RBC Distribution Width 12.5 % (11.5-14.5); Red Blood Cell (RBC) Count 4.11 mill/uL (4.20-5.40); White Blood Cell (WBC) Count 11.1 thou/uL (4.8-10.8)
[2021-05-13] MEDS: levETIRAcetam in NS 500 MG in Premix Bag 1 BAG IVPB SCH ×2 (09:26→20:07)
[2021-05-13] MEDS: Metoprolol Tartrate 25 MG TAB PO SCH ×2 (09:30→20:07)
[2021-05-13] MEDS: Losartan 25 MG TAB PO SCH (09:31)
[2021-05-13 09:35] LABS: Anion Gap 11 mmol/L (10-20); BUN (Urea Nitrogen) 15 mg/dL (7.0-18.7); Calc. Creatinine Clearance 210 mL/min (70-130); Calcium 9.1 mg/dL (7.8-10.44); Carbon Dioxide 22 mmol/L (22-29); Chloride 104 mmol/L (98-107); Glucose 155 mg/dL (70-105); Potassium 4.1 mmol/L (3.5-5.1); Sodium 133 mmol/L (136-145)
[2021-05-13] MEDS: ceFAZolin Sodium/D5W 2 GM in Premix Bag 1 BAG IVPB SCH ×2 (14:48→21:02)
[2021-05-13] MEDS: HumaLOG 300 UNITS/3 ML VIAL SC PRN (16:39)
[2021-05-14] MEDS: Dexamethasone 4 mg/ml Vial SLOW IVP SCH ×4 (03:53→21:23)
[2021-05-14] MEDS: Sodium Chloride 0.9% 1,000 ML IV SCH ×2 (03:53→18:21)
[2021-05-14 04:40] LABS: #Lymphocytes 0.6 thou/uL (1.20-3.40); #Monocytes 0.6 thou/uL (0.11-0.59); #Neutrophils 10.7 thou/uL (1.40-6.50); %Lymphocytes 4.9 % (21.0-51.0); %Monocytes 4.8 % (0.0-10.0); %Neutrophils 90.2 % (42.0-75.0); Hemoglobin 11.2 g/dL (12.0-16.0); Mean Corpuscular HGB CONC 32.8 g/dL (32.0-36.0); Mean Corpuscular Hemoglobin 30.3 pg (27.0-31.0); Mean Corpuscular Volume 92.4 fL (78.0-98.0); Mean Platelet Volume 6.5 fL (7.4-10.4); Platelet Count 186 thou/uL (130-400); RBC Distribution Width 12.4 % (11.5-14.5); Red Blood Cell (RBC) Count 3.69 mill/uL (4.20-5.40); White Blood Cell (WBC) Count 11.9 thou/uL (4.8-10.8)
[2021-05-14 05:10] LABS: Anion Gap 11 mmol/L (10-20); BUN (Urea Nitrogen) 15 mg/dL (7.0-18.7); Calc. Creatinine Clearance 219 mL/min (70-130); Calcium 8.8 mg/dL (7.8-10.44); Carbon Dioxide 23 mmol/L (22-29); Chloride 103 mmol/L (98-107); Glucose 147 mg/dL (70-105); Potassium 3.9 mmol/L (3.5-5.1); Sodium 133 mmol/L (136-145)
[2021-05-14] MEDS: ceFAZolin Sodium/D5W 2 GM in Premix Bag 1 BAG IVPB SCH ×3 (05:13→21:29)
[2021-05-14] MEDS ORDERED: ceFAZolin Sodium/D5W 2 GM in Premix Bag 1 BAG IVPB SCH (06:30)
[2021-05-14] MEDS: levETIRAcetam in NS 500 MG in Premix Bag 1 BAG IVPB SCH ×2 (10:00→21:22)
[2021-05-14] MEDS: Metoprolol Tartrate 25 MG TAB PO SCH ×2 (10:09→21:23)
[2021-05-14] MEDS: Losartan 25 MG TAB PO SCH (10:13)
[2021-05-14] MEDS ORDERED: Neomycin-Polymyxin 1 ML AMP ONE ×2 (14:00→17:53)
[2021-05-14] MEDS ORDERED: Thrombin 5000 UNITS/5 ML VIAL ONE (14:00)
[2021-05-14] MEDS ORDERED: Lidocaine 0.5%/Epinephrine 1:200,000 50 ml Vial ONE (14:00)
[2021-05-14] MEDS ORDERED: Bacitracin Zinc Ointment 30 gm TUBE ONE (14:01)
[2021-05-14] MEDS ORDERED: levETIRAcetam in NS 100 ML ONE (15:08)
[2021-05-14] MEDS ORDERED: levETIRAcetam 500 MG/100 ML PREMIX BAG ONE (15:08)
[2021-05-14] MEDS ORDERED: Albumin 25% 100 ML ONE (15:08)
[2021-05-14] MEDS ORDERED: Fentanyl 100 MCG/2 ML VIAL ONE ×3 (15:08→19:20)
[2021-05-14] MEDS ORDERED: Vecuronium 10 MG VIAL ONE ×4 (15:22→18:06)
[2021-05-14] MEDS ORDERED: Ondansetron PF 4 MG/2 ML Vial ONE (15:32)
[2021-05-14] MEDS ORDERED: Lidocaine 1% PF 5 ML VIAL ONE (15:32)
[2021-05-14] MEDS ORDERED: Phenylephrine 10 MG/ML VIAL ONE (15:32)
[2021-05-14] MEDS ORDERED: Rocuronium Bromide 10 MG/ML (10ML VIAL) ONE (15:32)
[2021-05-14] MEDS ORDERED: PROPOFOL 200 MG/20 ML VIAL ONE (15:32)
[2021-05-14] MEDS ORDERED: Dexamethasone 20 MG/5 ML VIAL ONE (15:32)
[2021-05-14] MEDS ORDERED: Propofol 1,000 MG/100 ML VIAL IV ONE (18:05)
[2021-05-14] MEDS ORDERED: SUGAMMADEX SODIUM 200 MG/2 ML VIAL ONE ×2 (20:38→20:39)
[2021-05-14] MEDS: Morphine 4 MG/ML VIAL SLOW IVP PRN ×2 (21:28→23:29)
[2021-05-14] MEDS: Ondansetron PF 4 MG/2 ML Vial IVP PRN (21:29)
[2021-05-14] MEDS: hydrALAZINE 20 MG/ML VIAL SLOW IVP PRN (21:29)
[2021-05-14] MEDS: niCARdipine 50 MG, Admixture Fee 1 EACH in Sodium Chloride 0.9% 250 ML 230 ML IVPB SCH (22:45)
[2021-05-15] MEDS: Lorazepam 2 MG/ML VIAL SLOW IVP PRN (03:07)
[2021-05-15 03:48] LABS: #Lymphocytes 0.7 thou/uL (1.20-3.40); #Monocytes 0.8 thou/uL (0.11-0.59); %Eosinophils 0.1 % (0.0-10.0); %Lymphocytes 5.1 % (21.0-51.0); %Monocytes 6.1 % (0.0-10.0); %Neutrophils 88.7 % (42.0-75.0); Hemoglobin 11.6 g/dL (12.0-16.0); Mean Corpuscular HGB CONC 33.5 g/dL (32.0-36.0); Mean Corpuscular Hemoglobin 30.8 pg (27.0-31.0); Mean Corpuscular Volume 91.9 fL (78.0-98.0); Mean Platelet Volume 6.2 fL (7.4-10.4); Platelet Count 179 thou/uL (130-400); RBC Distribution Width 12.4 % (11.5-14.5); Red Blood Cell (RBC) Count 3.78 mill/uL (4.20-5.40); White Blood Cell (WBC) Count 13.5 thou/uL (4.8-10.8)
[2021-05-15 04:22] LABS: BUN (Urea Nitrogen) 17 mg/dL (7.0-18.7); Calc. Creatinine Clearance 235 mL/min (70-130); Calcium 9.1 mg/dL (7.8-10.44); Chloride 102 mmol/L (98-107); Glucose 132 mg/dL (70-105); Sodium 132 mmol/L (136-145)
[2021-05-15] MEDS: Dexamethasone 4 mg/ml Vial SLOW IVP SCH ×3 (05:10→16:45)
[2021-05-15] MEDS: ceFAZolin Sodium/D5W 2 GM in Premix Bag 1 BAG IVPB SCH ×3 (05:10→21:23)
[2021-05-15] MEDS: niCARdipine 50 MG, Admixture Fee 1 EACH in Sodium Chloride 0.9% 250 ML 230 ML IVPB SCH (05:11)
[2021-05-15] MEDS: Morphine 4 MG/ML VIAL SLOW IVP PRN ×4 (05:19→21:27)
[2021-05-15 05:55] LABS: Anion Gap 11 mmol/L (10-20); Carbon Dioxide 23 mmol/L (22-29)
[2021-05-15] MEDS: Acetaminophen 500 MG TAB PO PRN ×2 (06:16→21:21)
[2021-05-15] MEDS: Sodium Chloride 0.9% 1,000 ML IV SCH ×2 (06:55→18:26)
[2021-05-15 08:40] VITALS: BMI 36.9
[2021-05-15] MEDS: Losartan 25 MG TAB PO SCH (09:46)
[2021-05-15] MEDS: Metoprolol Tartrate 25 MG TAB PO SCH ×2 (09:46→21:21)
[2021-05-15] MEDS: levETIRAcetam in NS 500 MG in Premix Bag 1 BAG IVPB SCH ×2 (09:46→21:23)
[2021-05-15] MEDS: hydrALAZINE 20 MG/ML VIAL SLOW IVP PRN ×2 (18:25→23:48)
[2021-05-15] MEDS: Senokot S 8.6-50 MG TAB PO PRN (21:22)
[2021-05-15] MEDS: niCARdipine 25 MG in Sodium Chloride 0.9% 250 ML 250 ML IVPB SCH (22:47)
[2021-05-16] MEDS: Morphine 4 MG/ML VIAL SLOW IVP PRN ×5 (00:35→18:39)
[2021-05-16] MEDS: niCARdipine 50 MG, Admixture Fee 1 EACH in Sodium Chloride 0.9% 250 ML 230 ML IVPB SCH (03:09)
[2021-05-16] MEDS: Ondansetron PF 4 MG/2 ML Vial IVP PRN (04:04)
[2021-05-16] MEDS: ceFAZolin Sodium/D5W 2 GM in Premix Bag 1 BAG IVPB SCH ×3 (05:53→21:03)
[2021-05-16 06:46] LABS: Anion Gap 9 mmol/L (10-20); BUN (Urea Nitrogen) 14 mg/dL (7.0-18.7); Calc. Creatinine Clearance 243 mL/min (70-130); Calcium 8.3 mg/dL (7.8-10.44); Carbon Dioxide 24 mmol/L (22-29); Chloride 103 mmol/L (98-107); Glucose 128 mg/dL (70-105); Potassium 4.1 mmol/L (3.5-5.1); Sodium 132 mmol/L (136-145)
[2021-05-16] MEDS: Dexamethasone 4 mg/ml Vial SLOW IVP SCH ×2 (08:54→18:49)
[2021-05-16] MEDS: levETIRAcetam in NS 500 MG in Premix Bag 1 BAG IVPB SCH ×2 (09:22→21:02)
[2021-05-16] MEDS: Polyethylene Glycol 3350 17 GM Packet PO SCH (09:23)
[2021-05-16] MEDS: Metoprolol Tartrate 25 MG TAB PO SCH ×2 (09:23→21:19)
[2021-05-16] MEDS: Losartan 25 MG TAB PO SCH (09:23)
[2021-05-16] MEDS: Sodium Chloride 0.9% 1,000 ML IV SCH ×3 (09:24→21:59)
[2021-05-16] MEDS: niCARdipine 25 MG in Sodium Chloride 0.9% 250 ML 250 ML IVPB SCH (10:17)
[2021-05-16] MEDS: HumaLOG 300 UNITS/3 ML VIAL SC PRN (22:00)
[2021-05-17] MEDS: Morphine 4 MG/ML VIAL SLOW IVP PRN ×2 (02:14→08:20)
[2021-05-17] MEDS: ceFAZolin Sodium/D5W 2 GM in Premix Bag 1 BAG IVPB SCH (05:37)
[2021-05-17] MEDS: Ondansetron PF 4 MG/2 ML Vial IVP PRN (05:37)
[2021-05-17] MEDS: Polyethylene Glycol 3350 17 GM Packet PO SCH (08:16)
[2021-05-17] MEDS: Dexamethasone 4 mg/ml Vial SLOW IVP SCH ×2 (08:16→18:10)
[2021-05-17] MEDS: Losartan 25 MG TAB PO SCH (08:16)
[2021-05-17] MEDS: levETIRAcetam in NS 500 MG in Premix Bag 1 BAG IVPB SCH ×2 (08:16→20:36)
[2021-05-17] MEDS: Metoprolol Tartrate 25 MG TAB PO SCH ×2 (08:17→20:36)
[2021-05-17 10:10] LABS: #Lymphocytes 0.6 thou/uL (1.20-3.40); #Monocytes 0.7 thou/uL (0.11-0.59); #Neutrophils 8.3 thou/uL (1.40-6.50); %Eosinophils 0.1 % (0.0-10.0); %Lymphocytes 5.9 % (21.0-51.0); %Monocytes 7.4 % (0.0-10.0); %Neutrophils 86.7 % (42.0-75.0); Hemoglobin 10.8 g/dL (12.0-16.0); Mean Corpuscular Hemoglobin 30.4 pg (27.0-31.0); Mean Platelet Volume 6.3 fL (7.4-10.4); Platelet Count 175 thou/uL (130-400); RBC Distribution Width 12.3 % (11.5-14.5); Red Blood Cell (RBC) Count 3.56 mill/uL (4.20-5.40); White Blood Cell (WBC) Count 9.5 thou/uL (4.8-10.8)
[2021-05-17] MEDS: Sodium Chloride 0.9% 1,000 ML IV SCH (11:30)
[2021-05-17] MEDS: Acetaminophen 500 MG TAB PO PRN (20:36)
[2021-05-17] MEDS: HumaLOG 300 UNITS/3 ML VIAL SC PRN (21:48)
[2021-05-18] MEDS: Morphine 4 MG/ML VIAL SLOW IVP PRN (02:32)
[2021-05-18] MEDS: Sodium Chloride 0.9% 1,000 ML IV SCH ×2 (02:35→16:19)
[2021-05-18] MEDS: HumaLOG 300 UNITS/3 ML VIAL SC PRN (05:16)
[2021-05-18] MEDS ORDERED: Dexamethasone 4 mg/ml Vial SLOW IVP SCH ×2 (06:15→17:00)
[2021-05-18] MEDS: levETIRAcetam in NS 500 MG in Premix Bag 1 BAG IVPB SCH ×2 (09:10→20:45)
[2021-05-18] MEDS: Polyethylene Glycol 3350 17 GM Packet PO SCH (09:10)
[2021-05-18] MEDS: Metoprolol Tartrate 25 MG TAB PO SCH ×2 (09:10→20:45)
[2021-05-18] MEDS: Losartan 25 MG TAB PO SCH (09:10)
[2021-05-18] MEDS: Acetaminophen 500 MG TAB PO PRN (20:52)
[2021-05-18 20:57] VITALS: TEMP 98.1
[2021-05-18 23:41] VITALS: BP 145/92
[2021-05-19 10:23] LABS: SARS-CoV-2 PCR by NAA Not Detected (NotDetected)
== END 2021-05-19 00:20 | disposition home or self-care (01) | DRG 25 ==
LOC: ERS 12:11 → CCU 15:26 → SURG A 05-17 12:45
PROVIDERS: ADMIT Internal Medicine; ATTEND Internal Medicine
PROC: 00B00ZZ Excision of Brain, Open Approach (ICD-10-PCS; 2021-05-11)
PROC: 009600Z Drainage of Cerebral Ventricle with Drainage Device, Open Approach (ICD-10-PCS; 2021-05-11)
PROC: 0NB70ZZ Excision of Occipital Bone, Open Approach (ICD-10-PCS; 2021-05-14)
PROC: 3E0333Z Introduction of Anti-inflammatory into Peripheral Vein, Percutaneous Approach (ICD-10-PCS; principal; 2021-05-15)
DX: C79.31 Secondary malignant neoplasm of brain (principal); G93.6 Cerebral edema; G93.5 Compression of brain; Z20.822 Contact with and (suspected) exposure to COVID-19; E87.1 Hypo-osmolality and hyponatremia; G91.9 Hydrocephalus, unspecified; E66.01 Morbid (severe) obesity due to excess calories; C50.911 Malignant neoplasm of unspecified site of right female breast; I10 Essential (primary) hypertension; Z68.37 Body mass index [BMI] 37.0-37.9, adult; Z79.899 Other long term (current) drug therapy; Z92.21 Personal history of antineoplastic chemotherapy; Z90.13 Acquired absence of bilateral breasts and nipples; Z83.1 Family history of other infectious and parasitic diseases; Z80.41 Family history of malignant neoplasm of ovary; Z17.1 Estrogen receptor negative status [ER-]
CPT/HCPCS: 0241U; 36415; 36416; 70450; 70553; 71260; 72148; 72149; 72156; 72157; 74177; 80048; 80053; 83690; 83735; 84443; 84703; 85025; 88307; 88331; 88334; 88341; 88342; 93005; 93306; 93970; 96374; 96375; A9579; C1713; C1729; C1776; C1788; J0360; J1100; J1815; J1953; J2001; J2060; J2150; J2270; J2370; J2405; J2704; J3010; J3370; J7050; J7509; J8540; P9047; Q9967; U0003; U0005

== ENCOUNTER 2021-07-27 10:02 | Outpatient (CLI) | payer BC | END 2021-07-27 10:03 | disposition home or self-care (01) | LOC: MRI 10:02 | PROVIDERS: ATTEND Radiology Radiation Oncology | DX: C79.31 Secondary malignant neoplasm of brain (principal); C50.919 Malignant neoplasm of unspecified site of unspecified female breast; G93.89 Other specified disorders of brain; Z98.890 Other specified postprocedural states | CPT/HCPCS: 70553 ==

== ENCOUNTER 2021-10-06 09:20 | Outpatient (CLI) | payer BC | END 2021-10-06 09:21 | disposition home or self-care (01) | LOC: CT 09:20 | PROVIDERS: ATTEND Internal Medicine Hematology & Oncology | DX: C50.111 Malignant neoplasm of central portion of right female breast (principal) | CPT/HCPCS: 71260; 74177; 78306; A9503 ==

== ENCOUNTER 2021-10-08 12:24 | Outpatient (CLI) | payer BC | END 2021-10-08 12:25 | disposition home or self-care (01) | LOC: ULT 12:24 | PROVIDERS: ATTEND Internal Medicine Hematology & Oncology | DX: Z51.11 Encounter for antineoplastic chemotherapy (principal); C50.111 Malignant neoplasm of central portion of right female breast; D50.0 Iron deficiency anemia secondary to blood loss (chronic); I07.1 Rheumatic tricuspid insufficiency; Z79.899 Other long term (current) drug therapy | CPT/HCPCS: 93306 ==

== ENCOUNTER 2021-11-13 09:43 | Outpatient (CLI) | payer BC ==
[2021-11-13] MEDS ORDERED: Gadobenate Dimeglumine 529 MG/1 ML (20ML VIAL) ONE (12:21)
== END 2021-11-13 09:44 | disposition home or self-care (01) ==
LOC: MRI 09:43
PROVIDERS: ATTEND Radiology Radiation Oncology
DX: C79.31 Secondary malignant neoplasm of brain (principal); C50.919 Malignant neoplasm of unspecified site of unspecified female breast; G93.6 Cerebral edema; Z98.890 Other specified postprocedural states
CPT/HCPCS: 70553

== ENCOUNTER 2021-12-22 12:23 | Outpatient (CLI) | payer BC | END 2021-12-22 12:24 | disposition home or self-care (01) | LOC: ULT 12:23 | PROVIDERS: ATTEND Internal Medicine Hematology & Oncology | DX: Z51.11 Encounter for antineoplastic chemotherapy (principal); C50.111 Malignant neoplasm of central portion of right female breast; I08.1 Rheumatic disorders of both mitral and tricuspid valves | CPT/HCPCS: 93306 ==

== ENCOUNTER 2022-02-10 10:20 | Outpatient (CLI) | payer BC, MEDICAID | END 2022-02-10 10:21 | disposition home or self-care (01) | LOC: TBSIIMAG 10:20 | PROVIDERS: ATTEND Radiology Radiation Oncology | DX: C79.31 Secondary malignant neoplasm of brain (principal); C50.919 Malignant neoplasm of unspecified site of unspecified female breast; G93.9 Disorder of brain, unspecified; Z98.890 Other specified postprocedural states | CPT/HCPCS: 70553 ==

== ENCOUNTER 2022-03-16 09:22 | Outpatient (CLI) | payer OTHER ==
[2022-03-16] MEDS ORDERED: Iopamidol 370 76% 100 ML VIAL ONE (09:55)
== END 2022-03-16 09:23 | disposition home or self-care (01) ==
LOC: CT 09:22
PROVIDERS: ATTEND Internal Medicine Hematology & Oncology
DX: C50.111 Malignant neoplasm of central portion of right female breast (principal); D50.0 Iron deficiency anemia secondary to blood loss (chronic)
CPT/HCPCS: 71260; 74177; 78306; A9503; Q9967

== ENCOUNTER 2022-03-24 13:27 | Outpatient (CLI) | payer OTHER | END 2022-03-24 13:28 | disposition home or self-care (01) | LOC: ULT 13:27 | PROVIDERS: ATTEND Internal Medicine Hematology & Oncology | DX: Z51.11 Encounter for antineoplastic chemotherapy (principal); C50.111 Malignant neoplasm of central portion of right female breast; D50.0 Iron deficiency anemia secondary to blood loss (chronic); I08.8 Other rheumatic multiple valve diseases; Z79.899 Other long term (current) drug therapy | CPT/HCPCS: 93306 ==

== ENCOUNTER 2022-06-09 11:08 | Outpatient (CLI) | payer OTHER ==
[~2022-06-09 11:08] MED LIST changes: -Iopamidol-370 76% 500 ML 1 ML ONE; +Magnevist 469MG/ML 20 ML VIAL ONE
== END 2022-06-09 11:09 | disposition home or self-care (01) ==
LOC: MRI 11:08
PROVIDERS: ATTEND Radiology Radiation Oncology
DX: C79.31 Secondary malignant neoplasm of brain (principal); C50.919 Malignant neoplasm of unspecified site of unspecified female breast; Z98.890 Other specified postprocedural states
CPT/HCPCS: 70553

== ENCOUNTER 2022-06-16 09:17 | Outpatient (CLI) | payer OTHER ==
[~2022-06-16 09:17] MED LIST changes: +Iopamidol 370 76% 100 ML VIAL ONE; -Magnevist 469MG/ML 20 ML VIAL ONE
== END 2022-06-16 09:18 | disposition home or self-care (01) ==
LOC: CT 09:17
PROVIDERS: ATTEND Internal Medicine Hematology & Oncology
DX: Z51.11 Encounter for antineoplastic chemotherapy (principal); C50.111 Malignant neoplasm of central portion of right female breast; D50.0 Iron deficiency anemia secondary to blood loss (chronic)
CPT/HCPCS: 71260; 74177; 78306; A9503

== ENCOUNTER 2022-06-17 12:52 | Outpatient (CLI) | payer OTHER | END 2022-06-17 12:53 | disposition home or self-care (01) | LOC: ULT 12:52 | PROVIDERS: ATTEND Internal Medicine Hematology & Oncology | DX: C50.111 Malignant neoplasm of central portion of right female breast (principal); D50.0 Iron deficiency anemia secondary to blood loss (chronic); I08.1 Rheumatic disorders of both mitral and tricuspid valves | CPT/HCPCS: 93306 ==

== ENCOUNTER 2022-06-28 12:38 | Outpatient (CLI) | payer OTHER | END 2022-06-28 12:39 | disposition home or self-care (01) | LOC: LABBT 12:38 | PROVIDERS: ATTEND Specialist | DX: Z01.818 Encounter for other preprocedural examination (principal); C80.1 Malignant (primary) neoplasm, unspecified | CPT/HCPCS: 86300; 93005; 93010 ==

== ENCOUNTER 2022-07-01 10:44 | Day surgery (SDC) | payer OTHER ==
[2022-06-29 08:47] VITALS: BMI 42.0
[2022-07-01] MEDS ORDERED: Acetaminophen 500 MG TAB ONE (11:04)
[2022-07-01] MEDS ORDERED: Ketorolac Tromethamine 30 MG/ML VIAL ONE (11:05)
[2022-07-01] MEDS ORDERED: Lidocaine 2% PF 5 ML VIAL ONE ×2 (11:25→13:15)
[2022-07-01] MEDS ORDERED: Bupivacaine/Epinephrine 0.25% 30 ML VIAL ONE ×2 (11:25→13:15)
[2022-07-01] MEDS ORDERED: Sodium Chloride 0.9% 100 ML ONE (12:22)
[2022-07-01] MEDS ORDERED: CEFAZOLIN 2 GM VIAL ONE (12:22)
== END 2022-07-01 15:16 | disposition home or self-care (01) ==
LOC: SDC 10:44
PROVIDERS: ATTEND Specialist
PROC: 0JH60WZ Insertion of Totally Implantable Vascular Access Device into Chest Subcutaneous Tissue and Fascia, Open Approach (ICD-10-PCS; principal; 2022-07-01)
PROC: 02HV33Z Insertion of Infusion Device into Superior Vena Cava, Percutaneous Approach (ICD-10-PCS; principal; 2022-07-01)
DX: C50.911 Malignant neoplasm of unspecified site of right female breast (principal); C79.31 Secondary malignant neoplasm of brain; C77.9 Secondary and unspecified malignant neoplasm of lymph node, unspecified; I10 Essential (primary) hypertension; Z17.1 Estrogen receptor negative status [ER-]; Z79.899 Other long term (current) drug therapy
CPT/HCPCS: 36416; 71045; C1788; J1642; J1885; J2001; J3490

== ENCOUNTER 2022-09-07 10:01 | Outpatient (CLI) | payer OTHER ==
[~2022-09-07 10:01] MED LIST changes: -Iopamidol 370 76% 100 ML VIAL ONE; +Magnevist 469MG/ML 20 ML VIAL ONE
== END 2022-09-07 10:02 | disposition home or self-care (01) ==
LOC: MRI 10:01
PROVIDERS: ATTEND Radiology Radiation Oncology
DX: C50.919 Malignant neoplasm of unspecified site of unspecified female breast (principal); C79.31 Secondary malignant neoplasm of brain; G93.89 Other specified disorders of brain; Z98.890 Other specified postprocedural states
CPT/HCPCS: 70553; A9579

== ENCOUNTER 2022-09-09 12:11 | Outpatient (CLI) | payer OTHER | END 2022-09-09 12:12 | disposition home or self-care (01) | LOC: ULT 12:11 | PROVIDERS: ATTEND Internal Medicine Hematology & Oncology | DX: Z51.11 Encounter for antineoplastic chemotherapy (principal); C50.111 Malignant neoplasm of central portion of right female breast; D50.0 Iron deficiency anemia secondary to blood loss (chronic); I07.1 Rheumatic tricuspid insufficiency; Z79.899 Other long term (current) drug therapy | CPT/HCPCS: 93306 ==

== ENCOUNTER 2022-09-14 09:48 | Outpatient (CLI) | payer OTHER | END 2022-09-14 09:49 | disposition home or self-care (01) | LOC: NM 09:48 | PROVIDERS: ATTEND Internal Medicine Hematology & Oncology | DX: C50.111 Malignant neoplasm of central portion of right female breast (principal); D50.0 Iron deficiency anemia secondary to blood loss (chronic) | CPT/HCPCS: 71260; 74177; 78306; A9503; J1642 ==

== ENCOUNTER 2022-12-09 13:09 | Outpatient (CLI) | payer OTHER | END 2022-12-09 13:10 | disposition home or self-care (01) | LOC: ULT 13:09 | PROVIDERS: ATTEND Internal Medicine Hematology & Oncology | DX: Z51.11 Encounter for antineoplastic chemotherapy (principal); C50.111 Malignant neoplasm of central portion of right female breast; D50.0 Iron deficiency anemia secondary to blood loss (chronic); I08.8 Other rheumatic multiple valve diseases; Z79.899 Other long term (current) drug therapy | CPT/HCPCS: 93306 ==

== ENCOUNTER 2022-12-10 09:23 | Outpatient (CLI) | payer OTHER ==
[2022-12-10] MEDS ORDERED: Iopamidol 370 76% 100 ML VIAL ONE (10:47)
== END 2022-12-10 09:24 | disposition home or self-care (01) ==
LOC: CT 09:23
PROVIDERS: ATTEND Internal Medicine Hematology & Oncology
DX: C50.111 Malignant neoplasm of central portion of right female breast (principal); D50.0 Iron deficiency anemia secondary to blood loss (chronic)
CPT/HCPCS: 71260; 74177; 78306; A9503

== ENCOUNTER 2022-12-24 09:53 | Outpatient (CLI) | payer OTHER | END 2022-12-24 09:54 | disposition home or self-care (01) | LOC: MRI 09:53 | PROVIDERS: ATTEND Radiology Radiation Oncology | DX: C79.31 Secondary malignant neoplasm of brain (principal); C50.919 Malignant neoplasm of unspecified site of unspecified female breast; G93.89 Other specified disorders of brain | CPT/HCPCS: 70551; 70553 ==

== ENCOUNTER 2023-03-11 12:28 | Outpatient (CLI) | payer OTHER | END 2023-03-11 12:29 | disposition home or self-care (01) | LOC: ULT 12:28 | PROVIDERS: ATTEND Internal Medicine Hematology & Oncology | DX: Z51.11 Encounter for antineoplastic chemotherapy (principal); C50.111 Malignant neoplasm of central portion of right female breast; I08.1 Rheumatic disorders of both mitral and tricuspid valves | CPT/HCPCS: 93306 ==

== ENCOUNTER 2023-04-12 08:39 | Outpatient (CLI) | payer OTHER | END 2023-04-12 08:40 | disposition home or self-care (01) | LOC: CT 08:39 | PROVIDERS: ATTEND Internal Medicine Hematology & Oncology | DX: C50.111 Malignant neoplasm of central portion of right female breast (principal); D50.0 Iron deficiency anemia secondary to blood loss (chronic) | CPT/HCPCS: 71260; 74177; 78306; A9503 ==

== ENCOUNTER 2023-07-08 12:29 | Outpatient (CLI) | payer OTHER | END 2023-07-08 12:30 | disposition home or self-care (01) | LOC: ULT 12:29 | PROVIDERS: ATTEND Internal Medicine Hematology & Oncology | DX: Z51.11 Encounter for antineoplastic chemotherapy (principal); C50.111 Malignant neoplasm of central portion of right female breast; I07.1 Rheumatic tricuspid insufficiency; I37.1 Nonrheumatic pulmonary valve insufficiency; Z79.899 Other long term (current) drug therapy | CPT/HCPCS: 93306 ==

== ENCOUNTER 2023-07-20 10:29 | Emergency (ER) | payer OTHER ==
[2023-07-20 12:18] LABS: #Eosinphils 0.1 thou/uL (0.0-0.7); #Monocytes 0.6 thou/uL (0.11-0.59); #Neutrophils 3.4 thou/uL (1.40-6.50); %Basophils 0.4 % (0.0-1.0); %Eosinophils 2.4 % (0.0-10.0); %Lymphocytes 17.6 % (21.0-51.0); %Monocytes 11.7 % (0.0-10.0); %Neutrophils 67.7 % (42.0-75.0); Hematocrit 29.5 % (36.0-47.0); Hemoglobin 10.1 g/dL (12.0-16.0); Mean Corpuscular HGB CONC 34.2 g/dL (32.0-36.0); Mean Corpuscular Hemoglobin 37.7 pg (27.0-31.0); Mean Corpuscular Volume 110.1 fl (78.0-98.0); Mean Platelet Volume 9.7 fL (7.4-10.4); Platelet Count 175 10x3/uL (130-400); Red Blood Cell (RBC) Count 2.68 mill/uL (4.20-5.40)
[2023-07-20 12:41] LABS: ALT (SGPT) 9 U/L (8-55); AST (SGOT) 11 U/L (5-34); Albumin 3.5 g/dL (3.5-5.0); Alkaline Phosphatase 82 U/L (40-110); Anion Gap 11 mmol/L (10-20); BHCG - Serum Negative (NEGATIVE); BUN (Urea Nitrogen) 9 mg/dL (7.0-18.7); Bilirubin, Total 1.4 mg/dL (0.2-1.2); Calc. Creatinine Clearance 0 mL/min (70-130); Carbon Dioxide 22 mmol/L (22-29); Chloride 110 mmol/L (98-107); Estimated GFR 74; Globulin 3.2 g/dL (2.4-3.5); Glucose 92 mg/dL (70-105); Potassium 3.7 mmol/L (3.5-5.1); Pregs Control Background? CLEAR/WHITE (CLR/WHITE); Pregs Control Bar Appear? YES (CONTROL BAR); Protein, Total 6.7 g/dL (6.0-8.3); Sodium 139 mmol/L (136-145)
[2023-07-20 13:02] LABS: Anisocytosis SLIGHT = 6-15 cells HPF (0-5); CellaVision Operator ID LAB.MJL; Large Platelets 5.9 % (0-5); Macrocytosis SLIGHT = 6-15 cells HPF (0-5); Ovalocytes SLIGHT = 2-5 cells HPF (0-1); Platelet Adequacy Comment Platelets Normal; Poikilocytosis SLIGHT = 6-15 cells HPF (0-5); Polychromasia SLIGHT = 2-3 cells HPF (0-2)
[2023-07-20 14:27] LABS: INR-International Normal Ratio 1.5; Prothrombin Time 18.4 sec (12.0-14.7)
[2023-07-20 14:28] LABS: PTT 21.8 sec (22.9-36.1)
[2023-07-20] MEDS ORDERED: Enoxaparin 30 MG (0.3 mL) SYRINGE ONE (14:44)
[2023-07-20] MEDS ORDERED: Enoxaparin 100 MG (1 mL) SYRINGE ONE (14:45)
[2023-07-20] MEDS ORDERED: Enoxaparin 60 MG (0.6 mL) SYRINGE ONE (14:56)
== END 2023-07-20 15:00 | disposition home or self-care (01) ==
LOC: ERS 10:29
DX: I82.402 Acute embolism and thrombosis of unspecified deep veins of left lower extremity (principal); I10 Essential (primary) hypertension; Z85.3 Personal history of malignant neoplasm of breast
CPT/HCPCS: 36415; 36416; 80053; 84703; 85025; 85610; 85730; J1650

== ENCOUNTER 2023-08-11 08:27 | Outpatient (CLI) | payer OTHER | END 2023-08-11 08:28 | disposition home or self-care (01) | LOC: CT 08:27 | PROVIDERS: ATTEND Internal Medicine Hematology & Oncology | DX: C50.111 Malignant neoplasm of central portion of right female breast (principal); C79.31 Secondary malignant neoplasm of brain; K80.20 Calculus of gallbladder without cholecystitis without obstruction | CPT/HCPCS: 71260; 74177 ==

== ENCOUNTER 2023-08-25 09:06 | Outpatient (CLI) | payer OTHER | END 2023-08-25 09:07 | disposition home or self-care (01) | LOC: NM 09:06 | PROVIDERS: ATTEND Internal Medicine Hematology & Oncology | DX: C50.111 Malignant neoplasm of central portion of right female breast (principal); C79.31 Secondary malignant neoplasm of brain | CPT/HCPCS: 78306; A9503 ==

== ENCOUNTER 2023-10-26 12:58 | Outpatient (CLI) | payer OTHER | END 2023-10-26 12:59 | disposition home or self-care (01) | LOC: ULT 12:58 | PROVIDERS: ATTEND Internal Medicine Hematology & Oncology | DX: Z51.11 Encounter for antineoplastic chemotherapy (principal); C50.111 Malignant neoplasm of central portion of right female breast; I07.1 Rheumatic tricuspid insufficiency; Z79.899 Other long term (current) drug therapy | CPT/HCPCS: 93306 ==

== ENCOUNTER 2023-11-07 08:36 | Outpatient (CLI) | payer OTHER ==
[2023-11-07] MEDS ORDERED: Iopamidol 370 76% 100 ML VIAL ONE (10:20)
== END 2023-11-07 08:37 | disposition home or self-care (01) ==
LOC: NM 08:36
PROVIDERS: ATTEND Internal Medicine Hematology & Oncology
DX: C50.111 Malignant neoplasm of central portion of right female breast (principal); C79.31 Secondary malignant neoplasm of brain; D50.0 Iron deficiency anemia secondary to blood loss (chronic)
CPT/HCPCS: 71260; 74177; 78306; A9503

== ENCOUNTER 2024-06-05 16:04 | Inpatient (IN) | payer MEDICARE ==
[2024-06-05] MEDS ORDERED: Morphine 2 MG/ML VIAL ONE (16:43)
[2024-06-05] MEDS ORDERED: Sodium Chloride 0.9% 100 ML ONE (17:47)
[2024-06-05] MEDS ORDERED: Cefepime 2 GM VIAL ONE (17:47)
[2024-06-05 18:14] LABS: #Basophils Less than 0.03 10x3/uL (0.0-0.2); %Basophils 0.3 % (0.0-1.0); %Eosinophils 1.2 % (0.0-10.0); %Lymphocytes 10.5 % (21.0-51.0); %Monocytes 7.8 % (0.0-10.0); %Neutrophils 79.5 % (42.0-75.0); Hematocrit 33.1 % (36.0-47.0); Hemoglobin 10.7 g/dL (12.0-16.0); Mean Corpuscular HGB CONC 32.3 g/dL (32.0-36.0); Mean Corpuscular Hemoglobin 28.8 pg (27.0-31.0); Mean Platelet Volume 9.3 fL (7.4-10.4); Platelet Count 264 10x3/uL (130-400); RBC Distribution Width 14.2 % (11.5-14.5); Red Blood Cell (RBC) Count 3.72 mill/uL (4.20-5.40)
[2024-06-05 18:28] LABS: Clarity Turbid (Clear); Specific Gravity, Urine 1.005 (1.002-1.036)
[2024-06-05 18:29] LABS: Bilirubin Negative (Negative); Blood, Urine Large (Negative); Glucose, Urine (Dipstick) Negative (Negative); Ketone, Urine Negative (Negative); Leukocyte Large (Negative); Nitrite Positive (Negative); Protein, Urine (Dipstick) > or equal to 300 mg/dL (Neg-Trace); Urobilinogen Normal mg/dL (Less than 2)
[2024-06-05 18:30] LABS: CAUTI Indications for Culture Alt mental st,lethar; RBC/HPF Greater than 50 HPF (0-3); WBC/HPF Greater Than 50 HPF (0-3)
[2024-06-05 18:31] LABS: Bacteria/HPF 4+ HPF (None Seen); Squamous Epithelial 0-3 HPF (0-3); Triple Phosphate Crystal 2+ HPF (None Seen); Urine Culture Reflex Yes Yes
[2024-06-05 18:37] LABS: ALT (SGPT) 39 U/L (8-55); AST (SGOT) 31 U/L (5-34); Albumin 2.5 g/dL (3.5-5.0); Alkaline Phosphatase 78 U/L (40-110); Anion Gap 13 mmol/L (10-20); BUN (Urea Nitrogen) 16 mg/dL (7.0-18.7); Bilirubin, Total 0.4 mg/dL (0.2-1.2); Calc. Creatinine Clearance 0 mL/min (70-130); Calcium 9.6 mg/dL (7.8-10.44); Carbon Dioxide 23 mmol/L (22-29); Chloride 108 mmol/L (98-107); Estimated GFR 122; Globulin 4.4 g/dL (2.4-3.5); Glucose 93 mg/dL (70-105); Potassium 3.7 mmol/L (3.5-5.1); Protein, Total 6.9 g/dL (6.0-8.3); Sodium 140 mmol/L (136-145)
[2024-06-05] MEDS ORDERED: Dexamethasone 10 MG/ML VIAL ONE (18:53)
[2024-06-05] MEDS ORDERED: Electrolyte Replacement Protocol 1 EACH IVPB PRN (19:31)
[2024-06-05] MEDS ORDERED: Bisacodyl 10 MG SUPP PR PRN (19:31)
[2024-06-05 20:24] VITALS: BMI 32.0
[2024-06-05] MEDS: Vancomycin (BATCH) 2.5 GM in Premix 1 BAG IVPB SCH (20:49)
[2024-06-05] MEDS: Famotidine/PF 20 mg/2ml Vial SLOW IVP SCH (21:05)
[2024-06-05] MEDS: niCARdipine 25 MG in Sodium Chloride 0.9% 250 ML 250 ML IVPB PRN (21:06)
[2024-06-05] MEDS: cefTRIAXone\\ROCEPHIN 1 GM in Sodium Chloride 0.9% 100 ML IVPB SCH (22:30)
[2024-06-06] MEDS: Dexamethasone Sod Phosphate 4 MG in Sodium Chloride 0.9% 50 ML IVPB SCH (00:27)
[2024-06-06 00:57] LABS: Pregnancy Test - Urine (BHCG) Negative (Negative); Pregu Control Background? CLEAR/WHITE (CLR/WHITE); Pregu Control Bar Appear? YES (CONTROL BAR); Specific Gravity 1.044 (1.002-1.036)
[2024-06-06 04:06] LABS: #Basophils Less than 0.03 10x3/uL (0.0-0.2); #Eosinophils Less than 0.03 10x3/uL (0.0-0.7); %Basophils 0.1 % (0.0-1.0); %Lymphocytes 6.9 % (21.0-51.0); %Monocytes 0.6 % (0.0-10.0); Hematocrit 42.1 % (36.0-47.0); Hemoglobin 13.5 g/dL (12.0-16.0); Mean Corpuscular HGB CONC 32.1 g/dL (32.0-36.0); Mean Corpuscular Hemoglobin 28.4 pg (27.0-31.0); Mean Corpuscular Volume 88.6 fL (78.0-98.0); Mean Platelet Volume 8.9 fL (7.4-10.4); Platelet Count 296 10x3/uL (130-400); RBC Distribution Width 13.9 % (11.5-14.5); Red Blood Cell (RBC) Count 4.75 mill/uL (4.20-5.40)
[2024-06-06 04:16] LABS: Anion Gap 18 mmol/L (10-20); BUN (Urea Nitrogen) 15 mg/dL (7.0-18.7); Calc. Creatinine Clearance 231 mL/min (70-130); Calcium 10.6 mg/dL (7.8-10.44); Carbon Dioxide 18 mmol/L (22-29); Chloride 108 mmol/L (98-107); Estimated GFR 118; Glucose 121 mg/dL (70-105); Potassium 4.5 mmol/L (3.5-5.1); Sodium 139 mmol/L (136-145)
[2024-06-06] MEDS: Sodium Chloride 0.9% 1,000 ML IV SCH (09:11)
[2024-06-06] MEDS: hydrALAZINE 20 MG/ML VIAL SLOW IVP PRN (09:11)
[2024-06-06 09:13] VITALS: BP 166/96
[2024-06-06] MEDS: Gabapentin 300 MG CAP PO SCH (09:16)
[2024-06-06] MEDS: Morphine 2 MG/ML VIAL SLOW IVP PRN (11:47)
[2024-06-06] MEDS: Dexamethasone 4 mg/ml Vial SLOW IVP SCH (12:02)
[2024-06-06 12:09] VITALS: TEMP 98.1
[2024-06-06] MEDS ORDERED: Tamsulosin HCl 0.4 MG CAP PO SCH (21:00)
[2024-06-06] MEDS ORDERED: Losartan 25 MG TAB PO SCH (21:00)
[2024-06-08] MEDS ORDERED: FLU (Fluarix Triv) TS24-25(6MOS UP)/PF 45 MCG/0.5 ML Syringe IM ONE (09:00)
== END 2024-06-06 16:10 | disposition hospice, home (50) | DRG 64 ==
LOC: ERS 16:04 → CCU 18:55
PROVIDERS: ADMIT Family Medicine; ATTEND Student in an Organized Health Care Education/Training Program
DX: I62.9 Nontraumatic intracranial hemorrhage, unspecified (principal); G93.6 Cerebral edema; C79.31 Secondary malignant neoplasm of brain; C79.51 Secondary malignant neoplasm of bone; N39.0 Urinary tract infection, site not specified; R09.02 Hypoxemia; C50.919 Malignant neoplasm of unspecified site of unspecified female breast; Z51.5 Encounter for palliative care; Z66 Do not resuscitate; E66.9 Obesity, unspecified; I10 Essential (primary) hypertension; Z90.13 Acquired absence of bilateral breasts and nipples; Z86.718 Personal history of other venous thrombosis and embolism; Z68.32 Body mass index [BMI] 32.0-32.9, adult; Z79.899 Other long term (current) drug therapy; Z79.01 Long term (current) use of anticoagulants; Z92.21 Personal history of antineoplastic chemotherapy; Z74.01 Bed confinement status
CPT/HCPCS: 36415; 36416; 70450; 71045; 72125; 80048; 80053; 81001; 81025; 83605; 85025; 86850; 86900; 86901; 87040; 87077; 87086; 87186; 93005; 93970; 96365; 96372; 96375; 97139; J0360; J0692; J0696; J1100; J2272; J3370; J3490; J7030; J7050